=== PATIENT | female | born 1950 | race Caucasian/White ===

== ENCOUNTER 2019-11-08 23:16 | Inpatient (IN) ==
[2019-11-08] MEDS ORDERED: SODIUM CHLORIDE 0.9% 1000ML 1,000 ML IV SCH (23:30)
[2019-11-08 23:38] LABS: Basophils # (auto) 0.04 K/uL (0-0.2); Basophils % (auto) 0.6 %; Eosinophils % (auto) 1.4 %; Immature Granulocytes # (auto) 0.02 K/uL (0.00-0.02); Immature Granulocytes % (auto) 0.3 %; Lymphocytes # (auto) 3.11 K/uL (1.2-3.4); Lymphocytes % (auto) 43.7 %; Mean Corpuscular Hemoglobin 34.7 pg (25-34); Mean Platelet Volume 9.8 fL (7.4-10.4); Monocytes # (auto) 0.69 K/uL (0.11-0.59); Monocytes % (auto) 9.7 %; Neutrophils # (auto) 3.15 K/uL (1.4-6.5); Neutrophils % (auto) 44.3 %; Platelet Count 187 K/uL (130-400); RDW Coefficient of Variation 12.6 % (11.5-14.5); Red Blood Count 4.04 M/uL (4.2-5.4); White Blood Count 7.11 K/uL (4.8-10.8)
[2019-11-08 23:50] LABS: Partial Thromboplastin Time 27.6 Seconds (21.0-31.0); Prothrombin Time 10.1 Seconds (9.0-12.0)
--- NOTE | 2019-11-08 23:51 | Emergency Department Note ---
Impression & Plan Alcoholic intoxication, Syncope, Acute hyponatremia, Hypokalemia ED Provider Note NAME: SIRIA RIZZO AGE: 69 SEX: F : 1950 ARRIVES VIA: Ambulance INFORMANT: Patient, the patient's daughter as well as the prehospital personnel. ED PROVIDER(S): [Eliot Oconnor DO] CHIEF COMPLAINT: Syncope HPI: The patient is a 57-year-old female who presented to the emergency department by ambulance for possible alcohol intoxication. Apparently the patient was at a local tavern outside of [place] when she was found passed out. The patient admits to multiple alcoholic beverages this evening. She denies having any chest pain. She denies having any neck pain or difficulty breathing. She has no lower extremity pain. She denies having any recent traveling or cough. She has no exposure to COVID-19 as far she knows. She admi ts to drinking multiple alcoholic beverages throughout the entire day. She apparently drove to a local tavern and when she went outside she had passed out. This was not a witnessed syncopal episode. The patient states she does not have any history of similar episodes in the past. ROS: See above HPI for pertinent positives & negatives. A total of 10 systems reviewed and were otherwise negative. PAST MEDICAL HISTORY: See Below PAST SURGICAL HISTORY: See Below FAMILY HISTORY: See Below SOCIAL HISTORY: See Below HOME MEDICATIONS: See Below ALLERGIES: See Below VITALS: See Below PHYSICAL EXAMINATION: GENERAL: Patient is awake alert in no acute distress patient is resting comfortably and showing no signs of anxiety EYES: The conjunctivae are clear. The pupils are round and reactive. EARS, NOSE, MOUTH AND THROAT: The nose is without any evidence of any deformity. Mucous membranes are moist. There is swelling in the occipital scalp but no laceration. NECK: The neck is nontender and supple. Rigid cervical collar was placed prior to arrival. RESPIRATORY: Normal respiratory effort is noted there is no evidence of wheezing rhonchi or rales CARDIOVASCULAR: Regular rate and rhythm noted there no murmurs rubs or gallops normal S1 normal S2. GASTROINTESTINAL: The abdomen is soft. Abdomen is nontender. BACK: No midline tenderness or or step-off noted range of motion in flexion extension as well as rotation no signs of muscle spasm noted MUSCULOSKELETAL/EXTREMITIES: There is no evidence of gross deformity full range of motion is noted in the hips and shoulders. SKIN: There is no obvious evidence of any rash. There is left lower extremity swelling to palpation. There is no erythema or lymphangitic streaking. NEUROLOGIC: Patient is oriented to person place and situation. Strength was symmetric. MEDICAL DECISION MAKING: The patient is a 69-year-old female who presented to the emergency department for an evaluation after being found outside of a bar. The patient has a history of chronic alcohol abuse according to her daughter. Additional history is obtained from the patient's daughter. The patient was treated with IV fluids IV thiamine and IV potassium replacement. I discussed the patient's laboratory and radiographic studies with her and her daughter in [place]. I also discussed her case with the on-call [facility] hospitalist. They have agreed to evaluate the patient in the emergency department for further management and disposition. The patient was placed in a rigid cervical collar upon arrival but she was very uncomfortable and removed the collar. Triage Nursing notes reviewed. Prior medical records reviewed Vital Signs: reviewed and remarkable for hypotension. Differential diagnosis: Vasovagal event, dehydration, infection, hypoglycemia, electrolyte abnormalities, cardiac sources, intracerebral event, pulmonary embolism, seizure, toxicologic, neurologic, as well as other pathologies. ER treatment provided: See below Diagnostics interpreted by me: ECG: EKG was obtained in the emergency department. My interpretation is normal sinus rhythm at 75 bpm. There is no ectopy. Right bundle branch block pattern was noted. There is no previous tracing available for comparison. Cardiac Monitoring: An order was placed for continuous cardiac monitoring. The monitor shows a rate of 85 with sinus rhythm. Laboratory studies: As stated above and show below. Imaging studies: See below Consultation(s): [id number]: Daughter Cori [phone] [id number]: I discussed this case with Dr. Fajardo. He is agreed to evaluate the patient in the emergency department for further management and disposition. Past Med/Surg History Medical History (Updated 11/09/19 @ 01:49 by Eliot Oconnor DO) Depression Lymphedema Surgical History History of cholecystectomy Social History (Updated 11/09/19 @ 01:47 by Eliot Oconnor DO) Feels Safe at Home: Yes Smoking Status: Never smoker Hx Alcohol Use: Yes Alcohol type: beer and hard liquor Allergies Allergies Allergy/AdvReac Type Severity Reaction Status Date / Time No Known Allergies Allergy Unverified 11/08/19 23:48 Home Meds Home Medications Medication Instructions Recorded Confirmed No Known Home Medications 11/08/19 11/08/19 Results & Data (ED) Vital Signs Vital Signs - 24 hr 11/08/19 23:30 11/08/19 23:40 11/09/19 01:13 Temperature 36.3 C L Temperature Source Oral Pulse Rate 71 77 79 Pulse Rate from SpO2 Sensor 72 77 Respiratory Rate 17 24 22 Respiratory Effort / Characteristics Non-Labored Spontaneous Respiratory Depth Normal Blood Pressure 113/74 133/85 113/71 Blood Pressure Mean 80 101 81 Pulse Oximetry 93 92 95 Oxygen Delivery Method Room Air Room Air Room Air Sepsis Action Taken by Nursing No Action Required 11/09/19 01:30 11/09/19 01:52 Temperature Temperature Source Pulse Rate 71 Pulse Rate from SpO2 Sensor 72 68 Respiratory Rate 19 17 Respiratory Effort / Characteristics Respiratory Depth Blood Pressure 90/66 L 89/52 L Blood Pressure Mean 74 62 Pulse Oximetry 95 94 Oxygen Delivery Method Room Air Room Air Sepsis Action Taken by [facility] Medications Current Medication List: was personally reviewed by me Laboratory Data Attestation: I reviewed the patient's lab results. Result diagrams: 11/08/19 23:20 11/08/19 23:20 Lab Results 11/08/19 11/08/19 11/08/19 Range/Units 23:20 23:20 23:20 WBC 7.11 (4.8-10.8) K/uL RBC 4.04 L (4.2-5.4) M/uL Hgb 14.0 (12.0-16.0) g/dL Hct 40.0 (37-47) % MCV 99.0 (80-100) fL MCH 34.7 H (25-34) pg MCHC 35.0 (32-36) g/dL RDW Std Deviation 46.0 (36.4-46.3) fL RDW Coeff of [place] 12.6 (11.5-14.5) % Plt Count 187 (130-400) K/uL MPV 9.8 (7.4-10.4) fL Immature Gran % (Auto) 0.3 % Neut % (Auto) 44.3 % Lymph % (Auto) 43.7 % [place] % (Auto) 9.7 % Eos % (Auto) 1.4 % Baso % (Auto) 0.6 % Neut # (Auto) 3.15 (1.4-6.5) K/uL Lymph # (Auto) 3.11 (1.2-3.4) K/uL [place] # (Auto) 0.69 H (0.11-0.59) K/uL Eos # (Auto) 0.10 (0-0.5) K/uL Baso # (Auto) 0.04 (0-0.2) K/uL Immature Gran # (Auto) 0.02 (0.00-0.02) K/uL PT 10.1 (9.0-12.0) Seconds INR 1.0 (0.9-1.1) APTT 27.6 (21.0-31.0) Seconds PTT Ratio 1.0 Sodium 129 L (136-145) mmol/L Potassium 2.6 L (3.5-5.1) mmol/L Chloride 91 L (98-107) mmol/L Carbon Dioxide 25 (21-32) mmol/L Anion Gap 12.0 H (3-11) BUN 9 (7-18) mg/dl Creatinine 0.71 (0.6-1.2) mg/dl Est Cr Clr Drug Dosing Not Reportable Est GFR ( Amer) 102.2 Est GFR (Non-Af Amer) 88.1 BUN/Creatinine Ratio 13.2 (10-20) Glucose 95 (70-99) mg/dl Calcium 8.9 (8.5-10.1) mg/dl Magnesium 1.9 (1.8-2.4) mg/dl Total Bilirubin 0.6 (0.2-1) mg/dl AST 50 H (15-37) U/L ALT 48 (12-78) U/L Alkaline Phosphatase 74 (45-117) U/L Troponin I < 0.015 (0-0.045) ng/ml Total Protein 7.9 (6.4-8.2) gm/dl Albumin 4.3 (3.4-5.0) gm/dl Globulin 3.6 (2.5-4.0) gm/dl Albumin/Globulin Ratio 1.2 (0.9-2) Lipase 244 (73-393) U/L TSH 3.070 (0.300-4.500) uIu/ml Urine Color Urine Appearance (Clear) Urine pH (4.5-7.5) Ur Specific [place] (1.000-1.030) Urine Protein (Negative) Urine Glucose (UA) (Negative) Urine Ketones (Negative) Urine Blood (Negative) Urine Nitrite (Negative) Urine Bilirubin (Negative) Urine Urobilinogen (Negative) Ur Leukocyte Esterase (Negative) Urine RBC (0-4) /hpf Urine WBC (0-5) /hpf Ur Epithelial Cells (0-5) /lpf Urine Bacteria (Negative) Ethyl Alcohol mg/dL (0-3) mg/dl 11/08/19 11/09/19 Range/Units 23:33 01:25 WBC (4.8-10.8) K/uL RBC (4.2-5.4) M/uL Hgb (12.0-16.0) g/dL Hct (37-47) % MCV (80-100) fL MCH (25-34) pg MCHC (32-36) g/dL RDW Std Deviation (36.4-46.3) fL RDW Coeff of [place] (11.5-14.5) % Plt Count (130-400) K/uL MPV (7.4-10.4) fL Immature Gran % (Auto) % Neut % (Auto) % Lymph % (Auto) % [place] % (Auto) % Eos % (Auto) % Baso % (Auto) % Neut # (Auto) (1.4-6.5) K/uL Lymph # (Auto) (1.2-3.4) K/uL [place] # (Auto) (0.11-0.59) K/uL Eos # (Auto) (0-0.5) K/uL Baso # (Auto) (0-0.2) K/uL Immature Gran # (Auto) (0.00-0.02) K/uL PT (9.0-12.0) Seconds INR (0.9-1.1) APTT (21.0-31.0) Seconds PTT Ratio Sodium (136-145) mmol/L Potassium (3.5-5.1) mmol/L Chloride (98-107) mmol/L Carbon Dioxide (21-32) mmol/L Anion Gap (3-11) BUN (7-18) mg/dl Creatinine (0.6-1.2) mg/dl Est Cr Clr Drug Dosing Est GFR ( Amer) Est GFR (Non-Af Amer) BUN/Creatinine Ratio (10-20) Glucose (70-99) mg/dl Calcium (8.5-10.1) mg/dl Magnesium (1.8-2.4) mg/dl Total Bilirubin (0.2-1) mg/dl AST (15-37) U/L ALT (12-78) U/L Alkaline Phosphatase (45-117) U/L Troponin I (0-0.045) ng/ml Total Protein (6.4-8.2) gm/dl Albumin (3.4-5.0) gm/dl Globulin (2.5-4.0) gm/dl Albumin/Globulin Ratio (0.9-2) Lipase (73-393) U/L TSH (0.300-4.500) uIu/ml Urine Color Yellow Urine Appearance Clear (Clear) Urine pH 6.0 (4.5-7.5) Ur Specific [place] 1.008 (1.000-1.030) Urine Protein Negative (Negative) Urine Glucose (UA) Negative (Negative) Urine Ketones Negative (Negative) Urine Blood Trace H (Negative) Urine Nitrite Negative (Negative) Urine Bilirubin Negative (Negative) Urine Urobilinogen Negative (Negative) Ur Leukocyte Esterase Negative (Negative) Urine RBC 0-4 (0-4) /hpf Urine WBC 0-5 (0-5) /hpf Ur Epithelial Cells 0-5 (0-5) /lpf Urine Bacteria Negative (Negative) Ethyl Alcohol mg/dL 294.0 H (0-3) mg/dl Administered Medications Potassium Chloride (K Hir[place] / Wtr) 10 meq in 100 mls @ 100 mls/hr IV Q1H ARABELLA Stop: 11/09/19 03:59 Last Admin: 11/09/19 02:05 Dose: 100 mls/hr Documented by: [id number] Sodium Chloride (Nss 1000ml) 1,000 mls @ 999 mls/hr IV .Q1H1M ONE Stop: 11/09/19 03:00 Last Admin: 11/09/19 02:05 Dose: 999 mls/hr Documented by: [id number] Discontinued Medications Sodium Chloride (Nss 1000ml) 1,000 mls @ 999 mls/hr IV .Q1H1M ARABELLA Stop: 11/09/19 00:30 Last Infusion: 11/09/19 01:26 Dose: 0 mls/hr Documented by: [id number] Admin: 11/09/19 00:15 Dose: 999 mls/hr Documented by: [id number] Imaging Data Attestation: I personally reviewed and interpreted this imaging study as follows: My Impression: Portable chest x-ray was obtained in the emergency department. My interpretation is no definite infiltrate no free air. Heart size is top normal. No acute disease. 1 view x-ray of the pelvis was obtained in the emergency department. My interpretation is no bony injury., No fracture, no acute disease was noted. Radiologist's Impression: Preliminary Findings Only See Final Report For Complete Findings CT C SPINE: CT HEAD: No acute intracranial finding. Status post bilateral cataract surgery. Mild reversal of the normal cervical lordosis apexes at C6. Multilevel disc and facet degenerative changes. Anatomic alignment of occipital condyle C1, C7-T1. Right greater than left C3-4, C4-5 facet arthropathy. C6-7 disc and uncovertebral joint space narrowing. Lung apices are normal. Radiologist: Yassine Anderson MD Study ready at 01:10 and initial results transmitted at 01:27 Blood Pressure Blood Pressure Findings: Normal blood pressure Discharge Plan Visit Data Chief Complaint: Alcohol Intoxication Stated Complaint: ETOH/Fall ED Provider: Eliot Oconnor Discharge Problem: Alcoholic intoxication, Syncope, Acute hyponatremia, Hypokalemia Patient Disposition: Being Evaluated by Hospitalist Condition: Good Forms Stand Alone Forms: My [employer] Prescriptions Prescriptions: No Action No Known Home Medications RF: 0 Referrals Referrals: PCP,NO [Primary Care Provider] -
[2019-11-08 23:54] LABS: Alanine Aminotransferase 48 U/L (12-78); Albumin Level 4.3 gm/dl (3.4-5.0); Aspartate Aminotransferase 50 U/L (15-37); BUN Creatinine Ratio 13.2 (10-20); Blood Urea Nitrogen 9 mg/dl (7-18); Calcium 8.9 mg/dl (8.5-10.1); Carbon Dioxide 25 mmol/L (21-32); Chloride 91 mmol/L (98-107); Est GFR (African American) 102.2; Est GFR (Non-African American) 88.1; Glucose 95 mg/dl (70-99); Lipase 244 U/L (73-393); Magnesium 1.9 mg/dl (1.8-2.4); Potassium 2.6 mmol/L (3.5-5.1); Sodium 129 mmol/L (136-145)
[2019-11-09 00:05] LABS: Albumin Globulin Ratio 1.2 (0.9-2); Alkaline Phosphatase 74 U/L (45-117); Bilirubin,Total 0.6 mg/dl (0.2-1); Globulin 3.6 gm/dl (2.5-4.0); Total Protein 7.9 gm/dl (6.4-8.2); Troponin I < 0.015 ng/ml (0-0.045)
[2019-11-09] MEDS ORDERED: POTASSIUM ACETATE 10 MEQ in 0.9 % SODIUM CHLORIDE 100 ML IV SCH (01:30)
[2019-11-09 01:34] LABS: Appearance Urine Clear (Clear); Bilirubin Urine Negative (Negative); Blood Urine Trace (Negative); Color Urine Yellow; Glucose Urine UA Negative (Negative); Ketones Urine Negative (Negative); Leukocyte Esterase Urine Negative (Negative); Nitrite Urine Negative (Negative); Protein Urine Negative (Negative); Specific Gravity Urine 1.008 (1.000-1.030); Urobilinogen Urine Negative (Negative)
[2019-11-09 01:58] LABS: Epithelial Cell Urine 0-5 /lpf (0-5)
[2019-11-09 01:59] LABS: Bacteria Urine Negative (Negative); RBC Urine 0-4 /hpf (0-4); WBC Urine 0-5 /hpf (0-5)
[2019-11-09] MEDS ORDERED: THIAMINE HCL 200 MG in SODIUM CHLORIDE 0.9% 50 ML IV STA (02:00)
[2019-11-09] MEDS ORDERED: SODIUM CHLORIDE 0.9% 1000ML 1,000 ML IV ONE (02:00)
[2019-11-09] MEDS: POTASSIUM CHLORIDE / WTR 10 MEQ/100 ML PLCT IV SCH ×2 (02:05→02:59)
[2019-11-09 02:36] LABS: Amphetamines+Metham, Urine Neg (Neg); Barbiturates, Urine Neg (Neg); Benzodiazepine, Urine Neg (Neg); Cocaine, Urine Neg (Neg); MDMA (Ecstacy), Urine Neg (Neg); Methadone, Urine Neg (Neg); Opiate, Urine Neg (Neg); Phencyclidine, Urine Neg (Neg)
--- NOTE | 2019-11-09 02:57 | History & Physical Report ---
Date of Service November 09, 2019 Assessment & Plan (1) Fall: Possible syncopal event Possible orthostasis given low BP Rule out cardiac pathology Hyponatremia, hypokalemia possibly secondary to poor p.o. intake Alcohol abuse contributory to hyponatremia mood disorder, suboptimal, on SSRI at home, patient denies suicidality hypothyroidism, euthyroid as of today's TSH Medical telemetry IVF TTE RE syncope Careful correction of sodium, hyponatremia work-up Nephrology consult if without improvement Hold SSRI for now given hyponatremia Replace electrolytes DT precautions PT OT eval DVT prophylaxis. SCDs RE traumatic head wound DNR Text document was generated using [employer] voice recognition software. It may contain grammatical or spelling errors. Kindly contact undersigned for clarification of any documentation item in question. History of Present Illness Chief Complaint: Alcohol intoxication as per records, possibly passed out Primary Care Provider: Jenna Adams PA-C History obtained from patient and records. Medical history significant for mood disorder, hypothyroidism, alcohol abuse. Patient was drinking by herself at a local bar in [facility] last night. She left the bar to go home. Thinks she may have passed out outside the bar. May have drank too much as per patient. Patient denies chest pain, S OB, tongue biting, incontinence. No witnessed seizures. Bleeding wound noted on occipital area as per EMS. Patient denies headache symptoms. Although depression not the best. Patient denies suicidality. No history of confinements for alcohol withdrawal. 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 Allergies Allergy/AdvReac Type Severity Reaction Status Date / Time No Known Allergies Allergy Unverified 11/08/19 23:48 Home Medications Home Medications Medication Instructions Recorded Confirmed Type No Known Home Medications 11/08/19 11/08/19 History Past Med/Surg History Medical History (Updated 11/09/19 @ 10:55 by Gordo Vargas MD) Depression Lymphedema Surgical History History of cholecystectomy Social History (Updated 11/09/19 @ 01:47 by Eliot Oconnor DO) Preferred Language: [employer] Coordinator Required: No Beliefs That Will Affect Care: None Current Living Situation: Family Other Information That Helps Us Care for You: No Feels Safe at Home: Yes Safety Concerns: Feels Safe At This Time Smoking Status: Never smoker Hx Alcohol Use: Yes Alcohol type: beer and hard liquor Hx Substance Use: No Review of Systems Review of Systems: As per HPI, all 10 systems reviewed, all other ROS negative Physical Exam Physical Exam: GENERAL: Comfortable, slight restless, alcoholic fetor, no respiratory distress SKIN: Normal color, warm HEENT: Dried blood occiput, [place] palpebral conjunctivae, no ptosis, dry buccal mucosa NECK : Supple, short neck, no tenderness CHEST : Decreased breath sounds, no tenderness HEART : RRR, no obvious murmurs ABDOMEN: Some distention, nontender EXTREMITIES : No LE swelling/tenderness, no other conspicuous deformities noted NEUROLOGIC : Coherent, no facial asymmetry, no other gross focality Results & Data Results & Data ([facility]) Vital Signs (Past 12 Hours) Vital Signs Temp Pulse Resp BP Pulse Ox 11/09/19 02:30 69 20 102/59 L 95 11/09/19 01:52 17 89/52 L 94 11/09/19 01:30 71 19 90/66 L 95 11/09/19 01:13 79 22 113/71 95 11/08/19 23:40 36.3 C L 77 24 133/85 92 11/08/19 23:30 71 17 113/74 93 Laboratory Results Laboratory Results WBC 7.11 K/uL (4.8-10.8) 11/08/19 23:20 RBC 4.04 M/uL (4.2-5.4) L 11/08/19 23:20 Hgb 14.0 g/dL (12.0-16.0) 11/08/19 23:20 Hct 40.0 % (37-47) 11/08/19 23:20 MCV 99.0 fL (80-100) 11/08/19 23:20 MCH 34.7 pg (25-34) H 11/08/19 23:20 MCHC 35.0 g/dL (32-36) 11/08/19 23:20 RDW Std Deviation 46.0 fL (36.4-46.3) 11/08/19 23:20 RDW Coeff of [place] 12.6 % (11.5-14.5) 11/08/19 23:20 Plt Count 187 K/uL (130-400) 11/08/19 23:20 MPV 9.8 fL (7.4-10.4) 11/08/19 23:20 Immature Gran % (Auto) 0.3 % 11/08/19 23:20 Neut % (Auto) 44.3 % 11/08/19 23:20 Lymph % (Auto) 43.7 % 11/08/19 23:20 [place] % (Auto) 9.7 % 11/08/19 23:20 Eos % (Auto) 1.4 % 11/08/19 23:20 Baso % (Auto) 0.6 % 11/08/19 23:20 Neut # (Auto) 3.15 K/uL (1.4-6.5) 11/08/19 23:20 Lymph # (Auto) 3.11 K/uL (1.2-3.4) 11/08/19 23:20 [place] # (Auto) 0.69 K/uL (0.11-0.59) H 11/08/19 23:20 Eos # (Auto) 0.10 K/uL (0-0.5) 11/08/19 23:20 Baso # (Auto) 0.04 K/uL (0-0.2) 11/08/19 23:20 Immature Gran # (Auto) 0.02 K/uL (0.00-0.02) 11/08/19 23:20 PT 10.1 Seconds (9.0-12.0) 11/08/19 23:20 INR 1.0 (0.9-1.1) 11/08/19 23:20 APTT 27.6 Seconds (21.0-31.0) 11/08/19 23:20 PTT Ratio 1.0 11/08/19 23:20 Sodium 129 mmol/L (136-145) L 11/08/19 23:20 Potassium 2.6 mmol/L (3.5-5.1) L 11/08/19 23:20 Chloride 91 mmol/L (98-107) L 11/08/19 23:20 Carbon Dioxide 25 mmol/L (21-32) 11/08/19 23:20 Anion Gap 12.0 (3-11) H 11/08/19 23:20 BUN 9 mg/dl (7-18) 11/08/19 23:20 Creatinine 0.71 mg/dl (0.6-1.2) 11/08/19 23:20 Est Cr Clr Drug Dosing Not Reportable 11/08/19 23:20 Est GFR ( Amer) 102.2 11/08/19 23:20 Est GFR (Non-Af Amer) 88.1 11/08/19 23:20 BUN/Creatinine Ratio 13.2 (10-20) 11/08/19 23:20 Glucose 95 mg/dl (70-99) 11/08/19 23:20 Osmolality 349 mOsm/kg (280-300) H 11/08/19 23:20 Calcium 8.9 mg/dl (8.5-10.1) 11/08/19 23: Magnesium 1.9 mg/dl (1.8-2.4) 11/08/19 23:20 Total Bilirubin 0.6 mg/dl (0.2-1) 11/08/19 23:20 AST 50 U/L (15-37) H 11/08/19 23:20 ALT 48 U/L (12-78) 11/08/19 23:20 Alkaline Phosphatase 74 U/L (45-117) 11/08/19 23:20 Troponin I < 0.015 ng/ml (0-0.045) 11/08/19 23:20 Total Protein 7.9 gm/dl (6.4-8.2) 11/08/19 23:20 Albumin 4.3 gm/dl (3.4-5.0) 11/08/19 23: Globulin 3.6 gm/dl (2.5-4.0) 11/08/19 23:20 Albumin/Globulin Ratio 1.2 (0.9-2) 11/08/19 23:20 Lipase 244 U/L (73-393) 11/08/19 23:20 TSH 3.070 uIu/ml (0.300-4.500) 11/08/19 23:20 Urine Color Yellow 11/09/19 01:25 Urine Appearance Clear (Clear) 11/09/19 01:25 Urine pH 6.0 (4.5-7.5) 11/09/19 01:25 Ur Specific [place] 1.008 (1.000-1.030) 11/09/19 01:25 Urine Protein Negative (Negative) 11/09/19 01:25 Urine Glucose (UA) Negative (Negative) 11/09/19 01:25 Urine Ketones Negative (Negative) 11/09/19 01:25 Urine Blood Trace (Negative) H 11/09/19 01:25 Urine Nitrite Negative (Negative) 11/09/19 01:25 Urine Bilirubin Negative (Negative) 11/09/19 01:25 Urine Urobilinogen Negative (Negative) 11/09/19 01:25 Ur Leukocyte Esterase Negative (Negative) 11/09/19 01:25 Urine RBC 0-4 /hpf (0-4) 11/09/19 01:25 Urine WBC 0-5 /hpf (0-5) 11/09/19 01:25 Ur Epithelial Cells 0-5 /lpf (0-5) 11/09/19 01:25 Urine Bacteria Negative (Negative) 11/09/19 01:25 Urine Osmolality 139 mOsm/kg (500-800) L 11/09/19 01:25 Ur Random Sodium 15 mmol/L 11/09/19 01:25 Urine Opiates Screen Neg (Neg) 11/09/19 01:25 Ur Methadone, Qual Neg (Neg) 11/09/19 01:25 Urine Barbiturates Neg (Neg) 11/09/19 01:25 Ur Phencyclidine (PCP) Neg (Neg) 11/09/19 01:25 U Amphetamin/Meth Scrn Neg (Neg) 11/09/19 01:25 MDMA (Ecstasy) Screen Neg (Neg) 11/09/19 01:25 U Benzodiazepines Scrn Neg (Neg) 11/09/19 01:25 Ur Cocaine Metabolite Neg (Neg) 11/09/19 01:25 U Marijuana (THC) Screen Neg (Neg) 11/09/19 01:25 Ethyl Alcohol mg/dL 294.0 mg/dl (0-3) H 11/08/19 23:[address] head initial read: No acute intracranial findings. CT cervical spine initial read: Mild reversal of normal cervical lordosis at C6. Multilevel disc and facet degenerative changes. Anatomic alignment occipital condyle C1 and C7-T1. Right greater than the left C3-4, C4-5 facet arthropathy. C6-7 disc and intervertebral joint space narrowing. Chest x-ray as per my interpretation no congestion EKG as per my interpretation : Rate 75, NSR, LAD, LAFB, RBBB, no ischemia
[2019-11-09] MEDS ORDERED: POTASSIUM CHLORIDE 20 MEQ TABCR PO STA (03:03)
[2019-11-09] MEDS ORDERED: ATIVAN IV ALCOHOL WITHDRAWL IV PRN (04:46)
[2019-11-09] MEDS ORDERED: LORazepam 2 MG/4 ML VIAL IV PRN (04:46)
[2019-11-09] MEDS ORDERED: ACETAMINOPHEN 325 MG TAB PO PRN (04:46)
[2019-11-09] MEDS ORDERED: LORazepam 3 MG/6 ML VIAL IV PRN (04:46)
[2019-11-09] MEDS ORDERED: LORazepam 1 MG/2 ML VIAL IV PRN (04:46)
[2019-11-09] MEDS ORDERED: GABAPENTIN 1200MG ALCOHOL WITHDRAWAL LOAD PO STA (04:46)
[2019-11-09] MEDS ORDERED: PROMETHAZINE HCL 12.5 MG in SODIUM CHLORIDE 0.9% 50 ML IV PRN (04:46)
[2019-11-09] MEDS ORDERED: OXYCODONE HCL IR 5 MG TAB (IMMEDIATE RELEASE) PO PRN (04:46)
[2019-11-09] MEDS ORDERED: POTASSIUM CHLORIDE 20 MEQ TABCR PO ONE (05:00)
[2019-11-09] MEDS ORDERED: GABAPENTIN 600 MG TAB PO ONE (05:00)
[2019-11-09] MEDS ORDERED: MAGNESIUM SULFATE / D5W 1 GM/100 ML BAG IV ONE (05:00)
[2019-11-09 05:42] LABS: Eosinophils # (auto) 0.07 K/uL (0-0.5); Eosinophils % (auto) 1.6 %; Hematocrit (blood only) 36.3 % (37-47); Hemoglobin 12.7 g/dL (12.0-16.0); Lymphocytes # (auto) 1.91 K/uL (1.2-3.4); Lymphocytes % (auto) 44.5 %; Mean Corpuscular Volume 97.1 fL (80-100); Mean Platelet Volume 9.5 fL (7.4-10.4); Monocytes # (auto) 0.29 K/uL (0.11-0.59); Monocytes % (auto) 6.8 %; Neutrophils # (auto) 2.02 K/uL (1.4-6.5); Neutrophils % (auto) 47.1 %; Platelet Count 149 K/uL (130-400); RDW Coefficient of Variation 12.7 % (11.5-14.5); Red Blood Count 3.74 M/uL (4.2-5.4); White Blood Count 4.29 K/uL (4.8-10.8)
[2019-11-09 06:10] LABS: Albumin Level 3.4 gm/dl (3.4-5.0); Bilirubin Direct 0.1 mg/dl (0-0.2); Bilirubin,Total 0.5 mg/dl (0.2-1); Total Protein 6.9 gm/dl (6.4-8.2)
[2019-11-09] MEDS ORDERED: NORMOSOL-R 1,000 ML IV ONE (06:15)
[2019-11-09 06:29] LABS: BUN Creatinine Ratio 11.1 (10-20); Calcium 8.3 mg/dl (8.5-10.1); Creatinine Clr Calc Pharmacy 93.3 ml/min; Est GFR (African American) 111.2; Est GFR (Non-African American) 95.9
[2019-11-09 06:57] LABS: Potassium 3.2 mmol/L (3.5-5.1)
[2019-11-09] MEDS ORDERED: CALCIUM GLUCONATE 10% 1,000 MG in SODIUM CHLORIDE 0.9% 50 ML IV STA (07:00)
[2019-11-09] MEDS: FOLIC ACID 1 MG TAB PO SCH (08:03)
[2019-11-09] MEDS: THIAMINE HCL 100 MG TAB PO SCH (08:03)
[2019-11-09] MEDS: GABAPENTIN 600 MG TAB PO SCH ×3 (08:03→23:15)
[2019-11-09] MEDS: MULTIVITAMIN TAB PO SCH (08:03)
--- NOTE | 2019-11-09 08:39 | CT Scan Report ---
CT head/brain wo con CLINICAL HISTORY: 69 years-old Female with syncope. Acute syncope TECHNIQUE: Multiple axial CT images of the head were obtained without contrast. A dose lowering tech nique was utilized adhering to the principles of ALARA. COMPARISON: None. FINDINGS: No acute intracranial hemorrhage, midline shift, intracranial mass, hydrocephalus, territorial ischem ia or abnormal extra-axial collection. There are a few minimal white matter hypodensities which are s uggestive of chronic microvascular ischemic disease. Mild age-related involutional changes. Prior aung ateral lens replacement. The calvarium is intact. The paranasal sinuses, mastoid air cells, and middle ear cavities are clear . IMPRESSION: No acute intracranial abnormality or calvarial fracture. ACT 112: Negative or not required by law. The above report was generated using voice recognition software. It may contain grammatical, syntax o r spelling errors. Electronically signed by: Camden Dominguez M.D. 11/09/2019 8:38 AM
--- NOTE | 2019-11-09 08:43 | CT Scan Report ---
CT cervical spine wo con CT DOSE: 999.01 mGy.cm CLINICAL HISTORY: 69 years-old Female with fll. Acute head and neck injury status post fall COMPARISON: Head CT of same day TECHNIQUE: Multiple axial CT images of the cervical spine were obtained without contrast. A dose low ering technique was utilized adhering to the principles of ALARA. FINDINGS: Mildly demineralized appearance the bones. Reversal the normal cervical lordosis. Grade 1 anterolisth esis C4 on C5 likely secondary to long-standing facet arthrosis. Mild multilevel disc space narrowing . Moderate to severe disc space narrowing at C6-C7 with moderate disc osteophyte complex. Severe mult ilevel facet arthrosis. Multilevel annular disc bulging. Evaluation of the central canal and neurofor pedro luis is better assessed by MRI. There is multilevel foraminal narrowing noted which is at least mild . Right-sided foraminal narrowing at C3-C4 appears to be severe. No acute fracture or subluxation wade ntified. Mastoid air cells are clear. No pneumothorax or prevertebral soft tissue swelling. IMPRESSION: No acute fracture or subluxation. ACT 112: Negative or not required by law. The above report was generated using voice recognition software. It may contain grammatical, syntax o r spelling errors. Electronically signed by: Camden Dominguez M.D. 11/09/2019 8:42 AM
--- NOTE | 2019-11-09 08:55 | XRay Report ---
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 No acute fracture, dislocation or sharron scular necrosis. Soft tissues are unremarkable. IMPRESSION: No acute fracture or dislocation. ACT 112: Negative or not required by law. The above report was generated using voice recognition software. It may contain grammatical, syntax o r spelling errors. Electronically signed by: Camden Dominguez M.D. 11/09/2019 8:53 AM
--- NOTE | 2019-11-09 08:56 | XRay Report ---
XR chest 1V portable HISTORY: 69 years-old Female fall acute chest trauma status post fall COMPARISON: None TECHNIQUE: Portable AP view of the chest FINDINGS: The cardiac silhouette is mildly enlarged. No pneumothorax, pleural effusion, airspace consolidation or overt pulmonary edema. Bones of the chest appear grossly intact. IMPRESSION: No acute process. ACT 112: Negative or not required by law. The above report was generated using voice recognition software. It may contain grammatical, syntax o r spelling errors. Electronically signed by: Camden Dominguez M.D. 11/09/2019 8:55 AM
[2019-11-09] MEDS ORDERED: LACTATED RINGER'S 1,000 ML IV ONE (09:15)
--- NOTE | 2019-11-09 14:33 | Electrocardiogram Report ---
Test Reason : Blood Pressure : / mmHG Vent. Rate : 075 BPM Atrial Rate : 075 BPM P-R Int : 202 ms QRS Dur : 148 ms QT Int : 504 ms P-R-T Axes : 063 -44 046 degrees QTc Int : 562 ms Normal sinus rhythm Left axis deviation Right bundle branch block Possible Lateral infarct , age undetermined Abnormal ECG No previous ECGs available Confirmed by Eliot Horton ([id number]) on 11/09/2019 2:33:14 PM Referred By: REFERRED SELF Confirmed By:Eliot Horton
[2019-11-09 16:52] LABS: Potassium 4.1 mmol/L (3.5-5.1)
--- NOTE | 2019-11-09 17:06 | Hospitalist Progress Note ---
Date of Service November 09, 2019 Assessment & Plan (1) Fall: Possible related to alcohol intoxication vs syncopal episode Need to r/o any seizure activity Alcohol level above [address] head showed no acute intracranial abnormality Cervical CT showed no acute fracture or subluxation. Tele monitor showed no arrhythmia Echo showed left ventricle systolic function is normal. Left ventricular wall motion is normal. Grade 2 diastolic dysfunction. Ejection fraction 50 to 60% Denies any pain PT/OT eval Fall precaution Alcohol abuse Alcohol level 294 on admission Denies any history of alcohol withdrawal or DT Continue alcohol withdrawal protocol with gabapentin and Ativan No sign of withdrawal symptoms noted Counseling on alcohol cessation Continue thiamine, folic acid and multivitamin Continue monitor closely for DT and alcohol withdrawal Hyponatremia Related to alcohol intake On admission Na 129, Serum osmolarity 349, urine osmolarity 139 and anion gap 12 Received IV NSS Most recent Na level 142 (Corrected too fast in less than 24 hrs) Normal anion gap now Current on lactate ringer, will change IV to D5W @ 100 Na goal 136-138 Will repeat BMP @ 11PM Elevated Lactic acid Mostly related to Alcohol intoxication Lactic acid peaked to 3.2 No signs of infection CXR showed negative Afebrile, No leukocytosis, Procalcitonin normal Received IVF, lactic acid normalized Hypokalemia Potassium on admission 2.6 Received K supplement K 4.1 today Continue monitor BMP Mood disorder SSRI on hold due to low Na Will resume in am Hypothyroidism TSH wnl Continue levothyroxine DVT px on SCDs Will start on Lovenox subq CODE STATUS DNR/DNI Disposition Will discharge once medically stable Admission and Anticipated Discharge Date Admission Date: November 09, 2019 Subjective Pt was seen and examined Lying in bed comfortable eating lunch She said that she did not remember what happened to her last night She said that she was at a bar drinking alcohol last night She said that she probably drank a little too much last night She said that the next thing she saw that she was in the ambulance She said that she drinks beers every day She said that she feels fine Denies any chest pain, palpitation, dizziness, palpitation, hallucination and SOB Physical Exam Physical Exam: General- No acute distress Head- atraumatic Eyes- PERRL, EOMI, ENT- oropharynx clear Neck- supple, no JVD Lungs- clear to auscultation Heart- regular rhythm; no murmur Abdomen- normal bowel sounds, soft, nontender Extremities- no calf tenderness Neuro- alert, oriented x 3; PERRL, EOMI; no facial palsy; no dysarthria Skin- warm & dry Results & Data Results & Data ([facility]) Vital Signs (Past 12 Hours) Vital Signs Temp Pulse Pulse Resp BP Pulse Ox 11/09/19 14:52 37.5 C 81 20 100/64 93 11/09/19 11:51 36.7 C 87 18 112/63 91 11/09/19 08:02 36.8 C 65 18 113/70 92 11/09/19 05:19 64 11/09/19 05:01 36.6 C 67 16 114/71 94
[2019-11-09] MEDS: DEXTROSE 5% 1,000 ML IV SCH (17:30)
[2019-11-10 00:24] LABS: BUN Creatinine Ratio 8.1 (10-20); Calcium 8.5 mg/dl (8.5-10.1); Creatinine Clr Calc Pharmacy 77.1 ml/min; Est GFR (African American) 104.4; Est GFR (Non-African American) 90.1; Potassium 4.1 mmol/L (3.5-5.1)
[2019-11-10] MEDS: DEXTROSE 5% 1,000 ML IV SCH (03:10)
[2019-11-10] MEDS: GABAPENTIN 600 MG TAB PO SCH ×2 (06:20→16:16)
[2019-11-10] MEDS ORDERED: LEVOTHYROXINE SODIUM 112 MCG TABLET PO SCH (06:30)
[2019-11-10 07:53] LABS: BUN Creatinine Ratio 6.4 (10-20); Calcium 8.4 mg/dl (8.5-10.1); Creatinine Clr Calc Pharmacy 82.4 ml/min; Est GFR (African American) 106.5; Est GFR (Non-African American) 91.9; Potassium 3.8 mmol/L (3.5-5.1)
[2019-11-10] MEDS: MULTIVITAMIN TAB PO SCH (07:55)
[2019-11-10] MEDS: THIAMINE HCL 100 MG TAB PO SCH (07:55)
[2019-11-10] MEDS: FOLIC ACID 1 MG TAB PO SCH (07:55)
[2019-11-10] MEDS ORDERED: ENOXAPARIN INJ 40 MG/0.4 ML SYR SQ SCH (09:00)
--- NOTE | 2019-11-10 16:47 | Hospitalist Progress Note ---
Date of Service November 10, 2019 Assessment & Plan (1) Fall: Possible related to alcohol intoxication vs syncopal episode Need to r/o any seizure activity Alcohol level above [address] head showed no acute intracranial abnormality Cervical CT showed no acute fracture or subluxation. Tele monitor showed no arrhythmia Echo showed left ventricle systolic function is normal. Left ventricular wall motion is normal. Grade 2 diastolic dysfunction. Ejection fraction 55 to 60% Denies any pain PT/OT on board Fall precaution Alcohol abuse Alcohol level 294 on admission Denies any history of alcohol withdrawal or DT Continue alcohol withdrawal protocol with gabapentin and Ativan Counseling on alcohol cessation Continue thiamine, folic acid and multivitamin Continue monitor closely for DT and alcohol withdrawal No sign of withdrawal symptoms noted She refused any inpatient rehab or outpatient alcohol program Hyponatremia Possible related to alcohol intake vs Diuretics (Pt said that she is on a water pills ) On admission Na 129, Serum osmolarity 349, urine osmolarity 139 and anion gap 12 Received IV NSS Most recent Na level 142 (Corrected too fast in less than 24 hrs) Normal anion gap now Will D/C D5 water Na 141 today Resolved Elevated Lactic acid Mostly related to Alcohol intoxication Lactic acid peaked to 3.2 No signs of infection CXR showed negative Afebrile, No leukocytosis, Procalcitonin normal Received IVF, lactic acid normalized Hypokalemia Potassium on admission 2.6 Received K supplement K 3.8 today Check BMP in 1 week Resolved Mood disorder Pt said that she is on antipsychotic medication Not sure if pt is on any SSRI Will defer to PCP if pt is on SSRI to monitor her sodium level Stable Hypothyroidism TSH wnl Pt said that she is on levothyroxine Will continue on discharge DVT px on SCDs On Lovenox subq CODE STATUS DNR/DNI Disposition Discharge home today Admission and Anticipated Discharge Date Admission Date: November 09, 2019 Subjective Pt was seen and examined Sitting in chair with no distress She said that she feels fine She would like to go home today She refused any inpatient rehab or outpatient alcohol program Denies any chest pain, palpitation, dizziness, palpitation, hallucination and SOB Physical Exam 2 Physical Exam: General- No acute distress Head- atraumatic Eyes- PERRL, EOMI, ENT- oropharynx clear Neck- supple, no JVD Lungs- clear to auscultation Heart- regular rhythm; no murmur Abdomen- normal bowel sounds, soft, nontender Extremities- no calf tenderness Neuro- alert, oriented x 3; PERRL, EOMI; no facial palsy; no dysarthria Skin- warm & dry Results & Data Results & Data ([facility]) Vital Signs (Past 12 Hours) Vital Signs Temp Pulse Resp BP Pulse Ox 11/10/19 15:38 37.0 C 71 18 115/72 96 11/10/19 11:19 36.3 C L 64 18 122/80 97 11/10/19 07:03 36.7 C 66 20 122/76 97
[2019-11-11] MEDS ORDERED: GABAPENTIN 600 MG TAB PO SCH (03:05)
--- NOTE | 2019-11-11 09:29 | Discharge Summary ---
Date of Service November 10, 2019 Admission HPI Per Admitting Provider History obtained from patient and records. Medical history significant for mood disorder, hypothyroidism, alcohol abuse. Patient was drinking by herself at a local bar in [facility] last night. She left the bar to go home. Thinks she may have passed out outside the bar. May have drank too much as per patient. Patient denies chest pain, S OB, tongue biting, incontinence. No witnessed seizures. Bleeding wound noted on occipital area as per EMS. Patient denies headache symptoms. Although depression not the best. Patient denies suicidality. No history of confinements for alcohol withdrawal. 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 Admission Exam Per Admitting Provider GENERAL: Comfortable, slight restless, alcoholic fetor, no respiratory distress SKIN: Normal color, warm HEENT: Dried blood occiput, Maynard palpebral conjunctivae, no ptosis, dry buccal mucosa NECK : Supple, short neck, no tenderness CHEST : Decreased breath sounds, no tenderness HEART : RRR, no obvious murmurs ABDOMEN: Some distention, nontender EXTREMITIES : No LE swelling/tenderness, no other conspicuous deformities noted NEUROLOGIC : Coherent, no facial asymmetry, no other gross focality Principal Diagnosis Fall: Alcohol intoxication Alcohol abuse Hyponatremia (Low Sodium) Elevated Lactic acid Hypokalemia (Low Potassium) Discharge Exam General- No acute distress Head- atraumatic Eyes- PERRL, EOMI, ENT- oropharynx clear Neck- supple, no JVD Lungs- clear to auscultation Heart- regular rhythm; no murmur Abdomen- normal bowel sounds, soft, nontender Extremities- no calf tenderness Neuro- alert, oriented x 3; PERRL, EOMI; no facial palsy; no dysarthria Skin- warm & dry Discharge Data Allergies Allergy/AdvReac Type Severity Reaction Status Date / Time No Known Allergies Allergy Unverified 11/08/19 23:48 Consultations 11/09/19 02:04 ED Decision to Admit Stat 11/09/19 04:46 Consult Case Management - Discharge Planning Routine Ordered Studies 11/08/19 23:30 CT cervical spine wo con Urgent 11/08/19 23:31 CT head/brain wo con Urgent [facility], [place] [phone] CT Scan Report Patient: SIRIA RIZZOAdmit Date: 11/09/19 MR#: [id number]: [id number] Acct ID:[id number]: [facility] Zip: [place] [id number] Age: 69Location: 2N Sex: F Room/Bed: [facility] Att Phy: Kellie Salazar M.D.Diagnosis: HYPONATREMIA, POSS SYNCOPE Juju Phy: Jenna Adams-CService Date: 11/08/19 Fam Phy:Interpreting Phy: John Dominguez Admit Phy: Gordo Vargas MD Ordering Phy: Eliot Oconnor DO cc: ~ CT cervical spine wo con CT DOSE: 999.01 mGy.cm CLINICAL HISTORY: 69 years-old Female with fll. Acute head and neck injury status post fall COMPARISON: Head CT of same day TECHNIQUE: Multiple axial CT images of the cervical spine were obtained without contrast. A dose lowering technique was utilized adhering to the principles of ALARA. FINDINGS: Mildly demineralized appearance the bones. Reversal the normal cervical lordosis. Grade 1 anterolisthesis C4 on C5 likely secondary to long-standing facet arthrosis. Mild multilevel disc space narrowing. Moderate to severe disc space narrowing at C6-C7 with moderate disc osteophyte complex. Severe multilevel facet arthrosis. Multilevel annular disc bulging. Evaluation of the central canal and neuroforamina is better assessed by MRI. There is multilevel foraminal narrowing noted which is at least mild. Right-sided foraminal narrowing at C3-C4 appears to be severe. No acute fracture or subluxation identified. Mastoid air cells are clear. No pneumothorax or prevertebral soft tissue swelling. IMPRESSION: No acute fracture or subluxation. ACT 112: Negative or not required by law. The above report was generated using voice recognition software. It may contain grammatical, syntax or spelling errors. Electronically signed by: Camden Dominguez M.D. 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 No acute fracture, dislocation or avascular necrosis. Soft tissues are unremarkable. IMPRESSION: No acute fracture or dislocation. ACT 112: Negative or not required by law. The above report was generated using voice recognition software. It may contain grammatical, syntax or spelling errors. Electronically signed by: Camden Dominguez M.D. 11/09/2019 8:53 AM Dictated: 11/09/19851 Transcribed: 11/09/19851 XR chest 1V portable HISTORY: 69 years-old Female fall acute chest trauma status post fall COMPARISON: None TECHNIQUE: Portable AP view of the chest FINDINGS: The cardiac silhouette is mildly enlarged. No pneumothorax, pleural effusion, airspace consolidation or overt pulmonary edema. Bones of the chest appear grossly intact. IMPRESSION: No acute process. ACT 112: Negative or not required by law. The above report was generated using voice recognition software. It may contain grammatical, syntax or spelling errors. Electronically signed by: Camden Dominguez M.D. 11/09/2019 8:55 AM Dictated: 11/09/1951 Transcribed: 11/09/19852 CT head/brain wo con CLINICAL HISTORY: 69 years-old Female with syncope. Acute syncope TECHNIQUE: Multiple axial CT images of the head were obtained without contrast. A dose lowering technique was utilized adhering to the principles of ALARA. COMPARISON: None. FINDINGS: No acute intracranial hemorrhage, midline shift, intracranial mass, hydrocephalus, territorial ischemia or abnormal extra-axial collection. There are a few minimal white matter hypodensities which are suggestive of chronic microvascular ischemic disease. Mild age-related involutional changes. Prior bilateral lens replacement. The calvarium is intact. The paranasal sinuses, mastoid air cells, and middle ear cavities are clear. IMPRESSION: No acute intracranial abnormality or calvarial fracture. ACT 112: Negative or not required by law. The above report was generated using voice recognition software. It may contain grammatical, syntax or spelling errors. Electronically signed by: Camden Dominguez M.D. 11/09/2019 8:38 AM Dictated: 11/09/19835 Transcribed: 11/09/19835 Hospital Course (1) Fall: Possible related to alcohol intoxication vs syncopal episode Need to r/o any seizure activity Alcohol level above [address] head showed no acute intracranial abnormality Cervical CT showed no acute fracture or subluxation. Tele monitor showed no arrhythmia Echo showed left ventricle systolic function is normal. Left ventricular wall motion is normal. Grade 2 diastolic dysfunction. Ejection fraction 55 to 60% Denies any pain PT/OT on board Fall precaution Alcohol abuse Alcohol level 294 on admission Denies any history of alcohol withdrawal or DT Continue alcohol withdrawal protocol with gabapentin and Ativan Counseling on alcohol cessation Continue thiamine, folic acid and multivitamin Continue monitor closely for DT and alcohol withdrawal No sign of withdrawal symptoms noted She refused any inpatient rehab or outpatient alcohol program Hyponatremia Possible related to alcohol intake vs Diuretics (Pt said that she is on a water pills ) On admission Na 129, Serum osmolarity 349, urine osmolarity 139 and anion gap 12 Received IV NSS Most recent Na level 142 (Corrected too fast in less than 24 hrs) Normal anion gap now Will D/C D5 water Na 141 today Resolved Elevated Lactic acid Mostly related to Alcohol intoxication Lactic acid peaked to 3.2 No signs of infection CXR showed negative Afebrile, No leukocytosis, Procalcitonin normal Received IVF, lactic acid normalized Hypokalemia Potassium on admission 2.6 Received K supplement K 3.8 today Check BMP in 1 week Resolved Mood disorder Pt said that she is on antipsychotic medication Not sure if pt is on any SSRI Will defer to PCP if pt is on SSRI to monitor her sodium level Stable Hypothyroidism TSH wnl Pt said that she is on levothyroxine Will continue on discharge DVT px on SCDs On Lovenox subq CODE STATUS DNR/DNI Disposition Discharge home today Total Time Total Time Spent Total Time Spent (In Minutes): 35 minutes Total Time Includes: Examination of the Patient, Discharge Planning, Medication Reconciliation, Communication With Other Providers and Other Discharge Plan Discharge Items Patient Disposition: Home - Self-Care Reason For Visit: HYPONATREMIA, POSS SYNCOPE Discharge Diagnosis: Fall: alcohol intoxication Alcohol abuse Hyponatremia (Low Sodium) Elevated Lactic acid Hypokalemia (Low Potassium) Condition on Discharge: Good Activity: Resume your previous activity Non-emergency contact: Primary Care Provider Call non-emergency contact if: you have any medication questions Follow-up/Referrals: Jenna Adams PA-C [Primary Care Provider] - 11/14/19 11:00 am Diet: Heart Healthy Addtl Attending Provider Instructions: Follow up with your primary care provider Angie DEGROOT within 1 week Counseling on alcohol cessation Fall precaution Check BMP in 1 week to monitor your electrolytes (Your provider will order it at your next follow up appointment) Continue your home medications on discharge Pending Studies at Discharge: No Stand-Alone Forms: My [facility], Smoking Cessation Medications and DC Order Prescriptions: New thiamine HCl (vitamin B1) [Vitamin B-1] 100 mg Tablet 100 mg PO QAM 30 Days Qty: 30 RF: 0 folic acid 1 mg Tablet 1 mg PO QAM 30 Days Qty: 30 RF: 0 No Action No Known Home Medications RF: 0 Discharge Orders: Discharge Order (Routine); Ordered 11/10/19 Ordered By: Kellie Salazar Admission Data Admit Date/Time: 11/09/19 03:03 Attending Provider: Kellie Salazar Admit Provider: Gordo Vargas Primary Care Provider: Jenna Adams Other Providers: Gordo Vargas Other Interventions: Discharge Summary Assessment (RN) Last Done: 11/10/19 17:25 DC Date/Time DO NOT enter until pt leaves facility: 11/10/19 19:51
[2019-11-12] MEDS ORDERED: GABAPENTIN 600 MG TAB PO SCH (15:05)
== END 2019-11-10 19:51 | disposition home or self-care (01) | DRG 897 ==
LOC: ED 23:16 → 2N 11-09 03:03

== ENCOUNTER 2024-09-07 09:19 | Inpatient (IN) ==
--- NOTE | 2024-09-07 09:46 | Emergency Department Note ---
Impression & Plan Bimalleolar fracture of left ankle, Fall, Closed dislocation of left ankle, Fracture of metatarsal of left foot, closed, Heart block AV second degree ED Provider Note NAME: SIRIA RIZZO AGE: 74 SEX: F : 1950 ARRIVES VIA: Walk-In INFORMANT: Patient, ED PROVIDER(S): Eliot Oconnor DO CHIEF COMPLAINT: Leg pain HPI: The patient is a 74-year-old female who presented to the emergency department for evaluation of ankle pain. The patient had a slip and fall while she was taking out her garbage. She states that she is unsure exactly what happened but thinks she may have twisted her left leg. The patient did not strike her head. She denies having any head or neck pain. She denies having any loss of conscious. The patient states that she does have swelling in this ankle from time to time but the swelling is worse than usual. She denies having any numbness in the foot. ROS: See above HPI for pertinent positives & negatives. A total of 10 systems reviewed and were otherwise negative. PAST MEDICAL HISTORY: See Below PAST SURGICAL HISTORY: See Below FAMILY HISTORY: See Below SOCIAL HISTORY: See Below HOME MEDICATIONS: See Below ALLERGIES: See Below VITALS: See Below PHYSICAL EXAMINATION: GENERAL: Patient is awake alert in no acute distress patient is resting comfortably and showing no signs of anxiety EYES: The conjunctivae are clear. The pupils are round and reactive. EARS, NOSE, MOUTH AND THROAT: The nose is without any evidence of any deformity. NECK: The neck is nontender and supple. RESPIRATORY: Normal respiratory effort is noted there is no evidence of wheezing rhonchi or rales CARDIOVASCULAR: Regular rate and rhythm noted there no murmurs rubs or gallops normal S1 normal S2. GASTROINTESTINAL: The abdomen is soft. Abdomen is nontender. BACK: No midline tenderness or or step-off noted range of motion in flexion extension as well as rotation no signs of muscle spasm noted MUSCULOSKELETAL/EXTREMITIES: There is no evidence of gross deformity full range of motion is noted in the hips and shoulders. There is significant swelling and crepitus noted of the left ankle. There is tenderness over the lateral left foot. There is no tenderness over the proximal fibular head. SKIN: There is no obvious evidence of any rash. There is swelling noted to the left ankle. NEUROLOGIC: Patient is awake alert and oriented x3 MEDICAL DECISION MAKING: The patient is a 74-year-old female who presented to the emergency department for an evaluation of left ankle injury. The patient was found to have an ankle that was deformed clinically. She had an ankle that revealed a bimalleolar fracture with dislocation as well as multiple metatarsal fractures. The patient was treated with sedation we were able to reduce the ankle. Postreduction x-ray showed significant improvement. The patient's pain level also improved. The patient was treated with pain medication. She was reevaluated multiple times. During the reduction the patient did have an episode of hypoxia requiring [id number]. This was very brief but the patient was shown to have some episodes of secondary heart block during this. I discussed patient's laboratory and radiographic studies with her. I discussed her condition with the on-call orthopedic physician as well as the on-call [facility] hospitalist group. The patient will require medical clearance but then also operative management. They have agreed to evaluate the patient in the emergency department. Triage Nursing notes reviewed. Prior medical records reviewed Vital Signs: reviewed and remarkable for no significant abnormalities Differential diagnosis: Fracture, subluxation, dislocation, contusion, ligamentous injury, neurovascular, compartment syndrome, rhabdomyolysis, as well as other pathologies. ER treatment provided: See below Diagnostics interpreted by me: ECG: EKG was obtained in the emergency department. My interpretation is normal sinus rhythm at 73 bpm. No PVCs were noted. Right bundle branch block pattern was noted. This was compared to a tracing from December 05, 2019. No changes were noted. engine monitor strip was reviewed. My interpretation is secondary heart block type II was noted at 56 bpm. No PVCs were noted. Cardiac Monitoring: An order was placed for continuous cardiac monitoring. The monitor shows a rate of 69 bpm with sinus rhythm. Laboratory studies: As stated above and show below. Imaging studies: See below. Radiographic imaging was reviewed by myself Consultation(s): I discussed this case with Les who is on for orthopedics. I discussed this case with Ashlee who is on for the [facility] hospitalist group. Past Med/Surg History Problem List Trimalleolar fracture of left ankle Heart block AV second degree (Acute) Fracture of metatarsal of left foot, closed (Acute) Closed dislocation of left ankle (Acute) Fall (Acute) Bimalleolar fracture of left ankle (Acute) Fall Alcoholic intoxication (Acute) Syncope (Acute) Acute hyponatremia (Acute) Hypokalemia (Acute) Medical History Lymphedema Depression Surgical History History of cholecystectomy Family History Father Diabetes Social History Smoking Status: Never smoker Hx Alcohol Use: Yes Alcohol type: beer Hx Substance Use: No Preferred Language: Haitian Communication Ability: Effective Food Checker Required: No Beliefs That Will Affect Care: None Current Living Situation: Family Current Living Situation Comment: home with Merle agee Feellawrence Safe at Home: Yes Assistive Devices: None Allergies Allergies Allergy/AdvReac Type Severity Reaction Status Date / Time No Known Allergies Allergy Unverified 09/07/24 11:35 Home Meds Home Medications Medication Instructions Recorded Confirmed furosemide 40 mg tablet 40 mg PO QAM 09/07/24 09/07/24 levothyroxine 137 mcg tablet 137 mcg PO DAILY 09/07/24 09/07/24 sertraline 50 mg tablet 50 mg PO DAILY 09/07/24 09/07/24 simvastatin 40 mg tablet 40 mg PO HS 09/07/24 09/07/24 Results & Data (ED) Vital Signs Vital Signs - 24 hr 09/07/24 09:25 09/07/24 10:30 09/07/24 10:35 Temperature 36.6 C Temperature Source Temporal Artery Scan Pulse Rate 70 67 Pulse Rate [Apical] 73 Pulse Rate from SpO2 Sensor Respiratory Rate 20 18 Respiratory Effort / Characteristics Non-Labored Spontaneous Non-Labored Spontaneous Respiratory Depth Normal Normal Respiratory Pattern Regular Blood Pressure 130/69 Blood Pressure [Left Arm] 131/77 Blood Pressure Mean 89 Blood Pressure Mean [Left Arm] 95 Pulse Oximetry 96 92 Oxygen Delivery Method Room Air Room Air Oxygen Flow Rate Sepsis Recent Fever Within 48 Hours No Sepsis New/Unexplained Change in Mental Status N/A Sepsis Action Taken by Nursing No Action Required End-Tidal CO2 09/07/24 10:39 09/07/24 10:42 09/07/24 10:54 Temperature Temperature Source Pulse Rate 67 67 72 Pulse Rate [Apical] Pulse Rate from SpO2 Sensor 67 67 70 Respiratory Rate Respiratory Effort / Characteristics Respiratory Depth Respiratory Pattern Blood Pressure Blood Pressure [Left Arm] Blood Pressure Mean Blood Pressure Mean [Left Arm] Pulse Oximetry 94 93 93 Oxygen Delivery Method Room Air Room Air Room Air Oxygen Flow Rate Sepsis Recent Fever Within 48 Hours Sepsis New/Unexplained Change in Mental Status Sepsis Action Taken by Nursing End-Tidal CO2 09/07/24 11:00 09/07/24 11:12 09/07/24 11:14 Temperature Temperature Source Pulse Rate 73 50 L Pulse Rate [Apical] Pulse Rate from SpO2 Sensor 54 L Respiratory Rate 18 15 2 L Respiratory Effort / Characteristics Respiratory Depth Shallow Respiratory Pattern Blood Pressure 111/66 128/62 Blood Pressure [Left Arm] Blood Pressure Mean 96 84 Blood Pressure Mean [Left Arm] Pulse Oximetry 94 98 62 L Oxygen Delivery Method Room Air Nasal Cannula Ambu-Bag Oxygen Flow Rate 4 Sepsis Recent Fever Within 48 Hours Sepsis New/Unexplained Change in Mental Status Sepsis Action Taken by Nursing End-Tidal CO2 48 09/07/24 11:15 09/07/24 11:15 09/07/24 11:17 Temperature Temperature Source Pulse Rate 62 Pulse Rate [Apical] Pulse Rate from SpO2 Sensor 54 L Respiratory Rate 15 16 18 Respiratory Effort / Characteristics Spontaneous Respiratory Depth Shallow Shallow Respiratory Pattern Blood Pressure 124/78 Blood Pressure [Left Arm] Blood Pressure Mean 93 Blood Pressure Mean [Left Arm] Pulse Oximetry 97 98 97 Oxygen Delivery Method Nasal Cannula Nasal Cannula Nasal Cannula Oxygen Flow Rate 4 5 5 Sepsis Recent Fever Within 48 Hours Sepsis New/Unexplained Change in Mental Status Sepsis Action Taken by Nursing End-Tidal CO2 47 09/07/24 11:18 09/07/24 11:20 09/07/24 11:21 Temperature Temperature Source Pulse Rate 80 52 L Pulse Rate [Apical] Pulse Rate from SpO2 Sensor 76 Respiratory Rate 16 17 Respiratory Effort / Characteristics Non-Labored Spontaneous Respiratory Depth Normal Respiratory Pattern Blood Pressure Blood Pressure [Left Arm] Blood Pressure Mean Blood Pressure Mean [Left Arm] Pulse Oximetry 99 98 Oxygen Delivery Method Nasal Cannula Nasal Cannula Oxygen Flow Rate 5 2 Sepsis Recent Fever Within 48 Hours Sepsis New/Unexplained Change in Mental Status Sepsis Action Taken by Nursing End-Tidal CO2 37 09/07/24 11:21 09/07/24 11:22 09/07/24 11:24 Temperature Temperature Source Pulse Rate 64 Pulse Rate [Apical] Pulse Rate from SpO2 Sensor 69 Respiratory Rate 19 18 16 Respiratory Effort / Characteristics Non-Labored Spontaneous Non-Labored Spontaneous Respiratory Depth Normal Normal Respiratory Pattern Blood Pressure 114/69 Blood Pressure [Left Arm] Blood Pressure Mean 84 Blood Pressure Mean [Left Arm] Pulse Oximetry 99 98 97 Oxygen Delivery Method Nasal Cannula Nasal Cannula Nasal Cannula Oxygen Flow Rate 5 2 2 Sepsis Recent Fever Within 48 Hours Sepsis New/Unexplained Change in Mental Status Sepsis Action Taken by Nursing End-Tidal CO2 40 09/07/24 11:27 09/07/24 11:29 09/07/24 11:30 Temperature Temperature Source Pulse Rate 72 64 Pulse Rate [Apical] Pulse Rate from SpO2 Sensor Respiratory Rate 17 16 18 Respiratory Effort / Characteristics Non-Labored Spontaneous Respiratory Depth Normal Respiratory Pattern Blood Pressure 109/67 Blood Pressure [Left Arm] Blood Pressure Mean 79 Blood Pressure Mean [Left Arm] Pulse Oximetry 95 97 95 Oxygen Delivery Method Room Air Room Air Room Air Oxygen Flow Rate Sepsis Recent Fever Within 48 Hours Sepsis New/Unexplained Change in Mental Status Sepsis Action Taken by Nursing End-Tidal CO2 09/07/24 11:45 09/07/24 11:45 09/07/24 11:57 Temperature Temperature Source Pulse Rate 67 72 67 Pulse Rate [Apical] Pulse Rate from SpO2 Sensor 68 68 Respiratory Rate 13 17 15 Respiratory Effort / Characteristics Respiratory Depth Respiratory Pattern Blood Pressure 98/60 L 93/56 L Blood Pressure [Left Arm] Blood Pressure Mean 72 66 Blood Pressure Mean [Left Arm] Pulse Oximetry 95 94 94 Oxygen Delivery Method Room Air Room Air Room Air Oxygen Flow Rate Sepsis Recent Fever Within 48 Hours Sepsis New/Unexplained Change in Mental Status Sepsis Action Taken by Nursing End-Tidal CO2 09/07/24 12:00 09/07/24 12:06 09/07/24 12:15 Temperature Temperature Source Pulse Rate 72 70 68 Pulse Rate [Apical] Pulse Rate from SpO2 Sensor 71 69 Respiratory Rate 15 15 20 Respiratory Effort / Characteristics Respiratory Depth Respiratory Pattern Blood Pressure 92/58 L 104/55 L Blood Pressure [Left Arm] Blood Pressure Mean 69 75 Blood Pressure Mean [Left Arm] Pulse Oximetry 94 95 95 Oxygen Delivery Method Room Air Room Air Room Air Oxygen Flow Rate Sepsis Recent Fever Within 48 Hours Sepsis New/Unexplained Change in Mental Status Sepsis Action Taken by Nursing End-Tidal CO2 Home Medications Current Medication List: was personally reviewed by me Laboratory Data Attestation: I reviewed the patient's lab results. 09/07/24 10:30 09/07/24 10:30 Lab Results 09/07/24 Range/Units 10:30 WBC 7.77 (4.8-10.8) K/ul RBC 3.79 L (4.20-5.40) M/uL Hgb 13.1 (12.0-16.0) g/dl Hct 36.3 L (37.0-47.0) % MCV 95.8 (80.0-100.0) fL MCH 34.6 H (25.0-34.0) pg MCHC 36.1 H (32.0-36.0) g/dL RDW Std Deviation 41.3 (36.4-46.3) fL RDW Coeff of [place] 11.9 (11.5-14.5) % Plt Count 199 (130-400) K/uL MPV 9.6 (9.4-12.4) fL Immature Gran % (Auto) 0.1 % Neut % (Auto) 76.9 % Lymph % (Auto) 16.1 % [place] % (Auto) 6.2 % Eos % (Auto) 0.4 % Baso % (Auto) 0.3 % Neut # (Auto) 5.98 (1.40-6.50) K/uL Lymph # (Auto) 1.25 (1.20-3.40) K/uL [place] # (Auto) 0.48 (0.11-0.59) K/uL Eos # (Auto) 0.03 (0.00-0.50) K/uL Baso # (Auto) 0.02 (0.00-0.20) K/uL Immature Gran # (Auto) 0.01 (0.01-0.20) K/uL Sodium 131 L (136-145) mmol/L Potassium 3.9 (3.5-5.1) mmol/L Chloride 97 L (98-107) mmol/L Carbon Dioxide 26 (21-32) mmol/L Anion Gap 8 (3-11) BUN 4 L (6-23) mg/dl Creatinine 0.69 (0.6-1.2) mg/dl Est Cr Clr Drug Dosing 71.9 ml/min eGFR 92.15 BUN/Creatinine Ratio 5.8 L (10-20) Glucose 93 (70-99(Fasting)) mg/dl Osmolality 300 (280-300) mOsm/kg Calcium 8.5 L (8.6-10.3) mg/dl Total Bilirubin 0.6 (0.2-1.0) mg/dl AST 23 (13-39) U/L ALT 20 (7-52) U/L Alkaline Phosphatase 50 (34-104) U/L Troponin I High Sens 4.9 (0-14) pg/ml Total Protein 7.1 (6.0-8.3) gm/dl Albumin 4.3 (3.4-5.0) gm/dl Globulin 2.8 (2.5-4.0) gm/dl Albumin/Globulin Ratio 1.5 (0.9-2) Lipase 20 (11-82) U/L 25-OH Vitamin D Total 18.5 L (30-100) ng/ml TSH 1.959 (0.300-4.500) uIu/ml Lyme Disease Screen Negative (Negative) Administered Medications Sodium Chloride (Nss) 1,000 mls @ 80 mls/hr IV .[id number] ONE Stop: 09/08/24 01:13 Last Admin: 09/07/24 13:26 Dose: 80 mls/hr Documented By: KRISTINA Morphine Sulfate (Morphine Sulfate 2 Mg/Ml Carp) 2 mg IV Q3H PRN PRN Reason: Mod-Sev Pain (Scale 4-10) Stop: 09/21/24 14:21 Last Admin: 09/07/24 15:04 Dose: 2 mg Documented By: SOPHIE Discontinued Medications Thiamine HCl 200 mg/ Sodium (Chloride) 52 mls @ 210 mls/hr IV NOW STA Stop: 09/07/24 11:33 Last Infusion: 09/07/24 12:33 Dose: Infused Documented By: Admin: 09/07/24 12:18 Dose: 210 mls/hr Documented By: ARMANI Ketamine HCl (Ketamine Hcl 10mg/Ml Syr) 38 mg IV TODAY@1100 ARABELLA Stop: 09/07/24 12:00 Last Admin: 09/07/24 11:22 Dose: 38 mg Documented By: KATY Morphine Sulfate (Morphine Sulfate 10 Mg/Ml Carp/Vial) 6 mg IM NOW STA Stop: 09/07/24 09:43 Last Admin: 09/07/24 09:47 Dose: 6 mg Documented By: ARMANI Ondansetron HCl (Ondansetron 4 Mg Od Tab) 4 mg PO NOW STA Stop: 09/07/24 09:43 Last Admin: 09/07/24 09:47 Dose: 4 mg Documented By: ARMANI Propofol (Propofol Iv Emulsion 10 Mg/Ml 20 Ml Vial) 38 mg IV TODAY@1100 [facility] Stop: 09/07/24 12:00 Last Admin: 09/07/24 11:07 Dose: 38 mg Documented By: KATY Co-signed By: KRISTINA Propofol (Propofol Iv Emulsion 10 Mg/Ml 20 Ml Vial) 40 mg IV TODAY@1113 [facility] Stop: 09/07/24 12:00 Last Admin: 09/07/24 11:24 Dose: 40 mg Documented By: KATY Co-signed By: KRISTINA Imaging Data Attestation: I personally reviewed and interpreted this imaging study as follows: My Impression: 1 view chest x-ray was obtained in the emergency department. My interpretation is no free air or definite infiltrate, final report below. X-rays of the left ankle and left foot were obtained in the emergency department. My interpretation is bimalleolar fracture noted, metatarsal fractures noted, final report below. Radiologist's Impression: Ankle X-Ray 09/07/24 09:42 Clinical History: Injury 3 views of the left ankle are submitted for review. Findings: There is an acute displaced transverse fracture of the medial malleolus and there is a displaced and angulated fracture of the distal fibular metaphysis, with dislocation of the ankle joint. There are small dorsal and plantar calcaneal spurs. No significant arthritic changes are noted. No other osseous abnormality is identified. There are no radiopaque foreign bodies. Impression: Displaced fractures of the medial malleolus and distal fibular metaphysis, with dislocation of the ankle joint ACT 112: Positive. There are findings on this exam that require communication between the performing entity and the patient following Patient Test Result [place] Act ([place] 112) [place]. Electronically signed by Mario Olson 09-07-2024 10:31 AM Foot X-Ray 09/07/24 09:42 Clinical History: Fall 3 views of the left foot are submitted for review. Findings: There are nondisplaced fractures of the bases of the second, third, and fourth metatarsals. There is osteoarthritis of the great toe metatarsophalangeal joint. There are small dorsal and plantar calcaneal spurs. No other osseous abnormality is identified. There are no radiopaque foreign bodies. Impression: Nondisplaced fractures of the bases of the second, third, and fourth metatarsals ACT 112: Positive. There are findings on this exam that require communication between the performing entity and the patient following Patient Test Result [place] 112[place]. Electronically signed by Mario Olson 09-07-2024 10:28 AM Tibia/Fibula X-Ray 09/07/24 09:42 Clinical History: Fall 2 views of the left lower leg are submitted for review. Findings: There is an acute displaced transverse fracture of the medial malleolus and there is a displaced and angulated fracture of the distal fibular metaphysis, with dislocation of the ankle joint. There is joint space narrowing in the medial compartment of the left knee as well as osteophyte formation. No other osseous abnormality is identified. There are no radiopaque foreign bodies. Impression: 1. Displaced fractures of the medial malleolus and distal fibular metaphysis, with dislocation of the ankle joint 2. Mild to moderate severity left knee osteoarthritis ACT 112: Positive. There are findings on this exam that require communication between the performing entity and the patient following Patient Test Result [place] 112[place]. Electronically signed by Mario Olson 09-07-2024 10:32 AM Ankle X-Ray 09/07/24 11:19 Clinical History: Postreduction 2 views of the left ankle are submitted for review. Comparison is made to the prior examination obtained earlier today Findings: There has been interval partial reduction of the previously seen fractures of the medial malleolus and distal fibular metaphysis. Mild displacement remains. There is new cast material, which obscures fine bony detail. No significant arthritic changes are noted. No other osseous abnormality is identified. There are no radiopaque foreign bodies. Impression: Partial reduction of the previously seen fractures of the medial malleolus and distal fibular metaphysis ACT 112: Positive. There are findings on this exam that require communication between the performing entity and the patient following Patient Test Result [place] 112[place]. Electronically signed by Mario Olson 09-07-2024 12:10 PM Chest X-Ray 09/07/24 11:19 Technique: A frontal view of the chest was obtained Comparison is made to the prior examination dated 11/08/2019 Findings: There are no confluent pulmonary infiltrates. The heart size is within normal limits. No pleural effusion or pneumothorax is seen. There is no definite pulmonary nodule. No fracture is noted. No foreign body is seen Impression: No active disease Electronically signed by Mario Olson 09-07-2024 12:10 PM Discharge Plan Visit Data Chief Complaint: Fall Stated Complaint: FALL, LEFT ANKLE PAIN ED Provider: Eliot Oconnor Discharge Problem: Bimalleolar fracture of left ankle, Fall, Closed dislocation of left ankle, Fracture of metatarsal of left foot, closed, Heart block AV second degree Patient Disposition: Admitted As Inpatient Condition: Good Discharge Instructions Interventions: ED Discharge Assessment Last Done: 09/07/24 14:00
[2024-09-07] MEDS: ONDANSETRON 4 MG OD TAB PO STA (09:47)
[2024-09-07] MEDS: MoRPHine SULFATE 10 MG/ML CARP/VIAL IM STA (09:47)
--- NOTE | 2024-09-07 10:28 | XRay Report ---
Clinical History: Fall 3 views of the left foot are submitted for review. Findings: There are nondisplaced fractures of the bases of the second, third, and fourth metatarsals. There is osteoarthritis of the great toe metatarsophalangeal joint. There are small dorsal and plantar calcaneal spurs. No other osseous abnormality is identified. There are no radiopaque foreign bodies. Impression: Nondisplaced fractures of the bases of the second, third, and fourth metatarsals ACT 112: Positive. There are findings on this exam that require communication between the performing entity and the patient following Patient Test Result [place] 112[place]. Electronically signed by Mario Olson 09-07-2024 10:28 AM
--- NOTE | 2024-09-07 10:31 | XRay Report ---
Clinical History: Injury 3 views of the left ankle are submitted for review. Findings: There is an acute displaced transverse fracture of the medial malleolus and there is a displaced and angulated fracture of the distal fibular metaphysis, with dislocation of the ankle joint. There are small dorsal and plantar calcaneal spurs. No significant arthritic changes are noted. No other osseous abnormality is identified. There are no radiopaque foreign bodies. Impression: Displaced fractures of the medial malleolus and distal fibular metaphysis, with dislocation of the ankle joint ACT 112: Positive. There are findings on this exam that require communication between the performing entity and the patient following Patient Test Result [place] Act ([place] 112) [place]. Electronically signed by Mario Olson 09-07-2024 10:31 AM
--- NOTE | 2024-09-07 10:31 | Emergency Department Note ---
Pre Sedation Assessment Vital Signs Temp Pulse Pulse Resp BP BP Pulse Ox 09/07/24 11:21 52 L 09/07/24 10:35 67 09/07/24 10:30 73 18 131/77 92 09/07/24 09:25 36.6 C 70 20 130/69 96 O2 Del Method 09/07/24 11:21 09/07/24 10:35 09/07/24 10:30 Room Air 09/07/24 09:25 Room Air Cardiovascular RRR, no murmur, no edema + regular rate + S1 normal and + S2 normal no JVD + capillary refill normal and + edema (LLE) Respiratory normal respiratory effort, lungs clear to auscultation + respiratory effort normal; no respiratory distress and no retractions + clear to auscultation bilaterally Pre-Sedation Airway Assessment Smoking Status: Never smoker Hx Sleep Apnea: No Short, Thick Neck: No Oral Cavity: + Dentures; no Loose Teeth Mallampati Class: I ASA: ASA2 NPO Status Date of Last Intake of Fluids: 09/06/24 Time of Last Intake of Fluids: 20:00 Date of Last Intake of Solid Food: 09/06/24 Time of Last Intake of Solid Foods: 20:00 Procedure Planning Contraindications for Sedation: none Current Medications Reviewed: Yes Notes The planned sedation has been discussed with the patient. Informed Consent was obtained. I have identified the patient, determined the appropriateness of sed ation and have assessed the patient immediately prior to the procedure. All medicine(s) and interventions are by my order.
--- NOTE | 2024-09-07 10:32 | XRay Report ---
Clinical History: Fall 2 views of the left lower leg are submitted for review. Findings: There is an acute displaced transverse fracture of the medial malleolus and there is a displaced and angulated fracture of the distal fibular metaphysis, with dislocation of the ankle joint. There is joint space narrowing in the medial compartment of the left knee as well as osteophyte formation. No other osseous abnormality is identified. There are no radiopaque foreign bodies. Impression: 1. Displaced fractures of the medial malleolus and distal fibular metaphysis, with dislocation of the ankle joint 2. Mild to moderate severity left knee osteoarthritis ACT 112: Positive. There are findings on this exam that require communication between the performing entity and the patient following Patient Test Result [place] ([place] 112[place]. Electronically signed by Mario Olson 09-07-2024 10:32 AM
--- NOTE | 2024-09-07 10:32 | Emergency Department Note ---
Post Sedation Assessment Vital Signs Temp Pulse Pulse Resp BP BP Pulse Ox 09/07/24 12:15 68 20 104/55 L 95 09/07/24 12:06 70 15 95 09/07/24 12:00 72 15 92/58 L 94 09/07/24 11:57 67 15 94 09/07/24 11:45 72 17 93/56 L 94 09/07/24 11:45 67 13 98/60 L 95 09/07/24 11:30 64 18 109/67 95 09/07/24 11:29 72 16 97 09/07/24 11:27 17 95 09/07/24 11:24 16 97 09/07/24 11:22 18 98 09/07/24 11:21 64 19 114/69 99 09/07/24 11:21 52 L 09/07/24 11:20 17 98 09/07/24 11:18 80 16 99 09/07/24 11:17 18 97 09/07/24 11:15 16 98 09/07/24 11:15 62 15 124/78 97 09/07/24 11:14 2 L 62 L 09/07/24 11:12 50 L 15 128/62 98 09/07/24 11:00 73 18 111/66 94 09/07/24 10:54 72 93 09/07/24 10:42 67 93 09/07/24 10:39 67 94 09/07/24 10:35 67 09/07/24 10:30 73 18 131/77 92 09/07/24 09:25 36.6 C 70 20 130/69 96 O2 Del Method O2 Flow Rate 09/07/24 12:15 Room Air 09/07/24 12:06 Room Air 09/07/24 12:00 Room Air 09/07/24 11:57 Room Air 09/07/24 11:45 Room Air 09/07/24 11:45 Room Air 09/07/24 11:30 Room Air 09/07/24 11:29 Room Air 09/07/24 11:27 Room Air 09/07/24 11:24 Nasal Cannula 2 09/07/24 11:22 Nasal Cannula 2 09/07/24 11:21 Nasal Cannula 5 09/07/24 11:21 09/07/24 11:20 Nasal Cannula 2 09/07/24 11:18 Nasal Cannula 5 09/07/24 11:17 Nasal Cannula 5 09/07/24 11:15 Nasal Cannula 5 09/07/24 11:15 Nasal Cannula 4 09/07/24 11:14 Ambu-Bag 09/07/24 11:12 Nasal Cannula 4 09/07/24 11:00 Room Air 09/07/24 10:54 Room Air 09/07/24 10:42 Room Air 09/07/24 10:39 Room Air 09/07/24 10:35 09/07/24 10:30 Room Air 09/07/24 09:25 Room Air Recovery Score Activity: Moves 4 extremities Respiration: Deep Breath/Cough Circulation: +/-20% PreAnes Value Consciousness: Fully Awake Oxygen Saturation: > 92% On Room Air Discharge Sedation Level of Care: Phase I Unexpected Event: Ambu Bag Post Sedation Plan On clinical assessment, the patient appears to have tolerated the sedation without complications. Patient is recovering as anticipated. Patient will continue to be monitored by nursing and may be discharged when sedation discharge criteria are met per below protocol. Upon Completions of procedure up to 15 minutes continue every 5 minute vital signs and the P.A.R. score; then discharge to a Phase I or Fast Track to Phase II per the following guidelines: * Discharge Patient to appropriate Phase II area if PAR is 8 or greater or return to pre- procedure baseline. The post - procedure orders will be as directed. * If PAR score is less than 8 or not return to pre-procedure baseline then patient will follow Phase I monitoring till PAR is reached for Phase II. The Phase I may be done in procedure room or may call to secure a Phase I area. * If naloxone or flumazenil are used for reversal, hold in Phase I for continued monitoring from when last reversal dose was given for a minimum of 60 minutes or longer pending the nurse and/or physician discretion of patient condition before discharge to Phase II. Please call the Sedation Physician to re-evaluate and complete post-note for discharge to Phase II area. Do NOT discharge from procedure sedation or Phase 1 until post- sedation evaluation note is complete by procedure /sedation MD Sedation Discharge Instructions to be given to the patient at discharge to home. Sedation Data Time Out Team Members Agree on the Following: Correct Patient, Correct Procedure, Correct Site-Side and Allergies Verified Team Agrees: Yes Time Out Performed Time: 11:04 Sedation Times Sedation Start Date: 09/07/24 Sedation Start Time: 11:05 Sedation End Date: 09/07/24 Sedation End Time: 11:22 Total Sedation Time: 17 Procedure Times Procedure Start Time:: 11:08 Procedure End Time: 11:18
[2024-09-07] MEDS: PROPOFOL IV EMULSION 10 MG/ML 20 ML VIAL IV SCH ×2 (11:07→11:24)
[2024-09-07] MEDS: KETAMINE HCL 10MG/ML SYR IV SCH (11:22)
--- NOTE | 2024-09-07 11:24 | Emergency Department Note ---
Impression & Plan Bimalleolar fracture of left ankle, Fall, Closed dislocation of left ankle, Fracture of metatarsal of left foot, closed, Heart block AV second degree ED Provider Note I was asked to reduce this patient's left ankle by Dr. Oconnor. Please see his dictation for full history and physical. He performed the sedation for the procedure. Procedure: After the patient was adequately sedated, reduction of the left ankle trimalleolar fracture was performed. Traction was applied, eversion of the ankle was performed with successful reduction of the ankle by palpation. Unfortunately, the fracture pattern is highly unstable and dislocated easily. Additional reduction was performed and the foot was kept in an inverted position with which helped with maintaining reduction. The patient was splinted by me with Ortho-Glass using a posterior and coaptation splint. Neurovascular status was checked after the splint placement.Postreduction films were obtained. They confirmed improvement in alignment, though she was not fully reduced. The patient will require ORIF for stabilization. Please see Dr. Geiger's dictation for final management. Past Med/Surg History Problem List Trimalleolar fracture of left ankle Heart block AV second degree (Acute) Fracture of metatarsal of left foot, closed (Acute) Closed dislocation of left ankle (Acute) Fall (Acute) Bimalleolar fracture of left ankle (Acute) Fall Alcoholic intoxication (Acute) Syncope (Acute) Acute hyponatremia (Acute) Hypokalemia (Acute) Medical History Lymphedema Depression Surgical History History of cholecystectomy Family History Father Diabetes Social History Smoking Status: Never smoker Hx Alcohol Use: Yes Alcohol type: beer Hx Substance Use: No Preferred Language: Panamanian Communication Ability: Effective Drum Puller Required: No Beliefs That Will Affect Care: None Current Living Situation: Family Current Living Situation Comment: home with daughterMerle Feels Safe at Home: Yes Assistive Devices: None Allergies Allergies Allergy/AdvReac Type Severity Reaction Status Date / Time No Known Allergies Allergy Unverified 09/07/24 11:35 Home Meds Home Medications Medication Instructions Recorded Confirmed furosemide 40 mg tablet 40 mg PO QAM 09/07/24 09/07/24 levothyroxine 137 mcg tablet 137 mcg PO DAILY 09/07/24 09/07/24 sertraline 50 mg tablet 50 mg PO DAILY 09/07/24 09/07/24 simvastatin 40 mg tablet 40 mg PO HS 09/07/24 09/07/24 Results & Data (ED) Vital Signs Vital Signs - 24 hr 09/07/24 09:25 09/07/24 10:30 09/07/24 10:35 Temperature 36.6 C Temperature Source Temporal Artery Scan Pulse Rate 70 67 Pulse Rate [Apical] 73 Pulse Rate from SpO2 Sensor Respiratory Rate 20 18 Respiratory Effort / Characteristics Non-Labored Spontaneous Non-Labored Spontaneous Respiratory Depth Normal Normal Respiratory Pattern Regular Blood Pressure 130/69 Blood Pressure [Left Arm] 131/77 Blood Pressure Mean 89 Blood Pressure Mean [Left Arm] 95 Pulse Oximetry 96 92 Oxygen Delivery Method Room Air Room Air Oxygen Flow Rate Sepsis Recent Fever Within 48 Hours No Sepsis New/Unexplained Change in Mental Status N/A Sepsis Action Taken by Nursing No Action Required End-Tidal CO2 09/07/24 10:39 09/07/24 10:42 09/07/24 10:54 Temperature Temperature Source Pulse Rate 67 67 72 Pulse Rate [Apical] Pulse Rate from SpO2 Sensor 67 67 70 Respiratory Rate Respiratory Effort / Characteristics Respiratory Depth Respiratory Pattern Blood Pressure Blood Pressure [Left Arm] Blood Pressure Mean Blood Pressure Mean [Left Arm] Pulse Oximetry 94 93 93 Oxygen Delivery Method Room Air Room Air Room Air Oxygen Flow Rate Sepsis Recent Fever Within 48 Hours Sepsis New/Unexplained Change in Mental Status Sepsis Action Taken by Nursing End-Tidal CO2 09/07/24 11:00 09/07/24 11:12 09/07/24 11:14 Temperature Temperature Source Pulse Rate 73 50 L Pulse Rate [Apical] Pulse Rate from SpO2 Sensor 54 L Respiratory Rate 18 15 2 L Respiratory Effort / Characteristics Respiratory Depth Shallow Respiratory Pattern Blood Pressure 111/66 128/62 Blood Pressure [Left Arm] Blood Pressure Mean 96 84 Blood Pressure Mean [Left Arm] Pulse Oximetry 94 98 62 L Oxygen Delivery Method Room Air Nasal Cannula Ambu-Bag Oxygen Flow Rate 4 Sepsis Recent Fever Within 48 Hours Sepsis New/Unexplained Change in Mental Status Sepsis Action Taken by Nursing End-Tidal CO2 48 09/07/24 11:15 09/07/24 11:15 09/07/24 11:17 Temperature Temperature Source Pulse Rate 62 Pulse Rate [Apical] Pulse Rate from SpO2 Sensor 54 L Respiratory Rate 15 16 18 Respiratory Effort / Characteristics Spontaneous Respiratory Depth Shallow Shallow Respiratory Pattern Blood Pressure 124/78 Blood Pressure [Left Arm] Blood Pressure Mean 93 Blood Pressure Mean [Left Arm] Pulse Oximetry 97 98 97 Oxygen Delivery Method Nasal Cannula Nasal Cannula Nasal Cannula Oxygen Flow Rate 4 5 5 Sepsis Recent Fever Within 48 Hours Sepsis New/Unexplained Change in Mental Status Sepsis Action Taken by Nursing End-Tidal CO2 47 09/07/24 11:18 09/07/24 11:20 09/07/24 11:21 Temperature Temperature Source Pulse Rate 80 52 L Pulse Rate [Apical] Pulse Rate from SpO2 Sensor 76 Respiratory Rate 16 17 Respiratory Effort / Characteristics Non-Labored Spontaneous Respiratory Depth Normal Respiratory Pattern Blood Pressure Blood Pressure [Left Arm] Blood Pressure Mean Blood Pressure Mean [Left Arm] Pulse Oximetry 99 98 Oxygen Delivery Method Nasal Cannula Nasal Cannula Oxygen Flow Rate 5 2 Sepsis Recent Fever Within 48 Hours Sepsis New/Unexplained Change in Mental Status Sepsis Action Taken by Nursing End-Tidal CO2 37 09/07/24 11:21 09/07/24 11:22 09/07/24 11:24 Temperature Temperature Source Pulse Rate 64 Pulse Rate [Apical] Pulse Rate from SpO2 Sensor 69 Respiratory Rate 19 18 16 Respiratory Effort / Characteristics Non-Labored Spontaneous Non-Labored Spontaneous Respiratory Depth Normal Normal Respiratory Pattern Blood Pressure 114/69 Blood Pressure [Left Arm] Blood Pressure Mean 84 Blood Pressure Mean [Left Arm] Pulse Oximetry 99 98 97 Oxygen Delivery Method Nasal Cannula Nasal Cannula Nasal Cannula Oxygen Flow Rate 5 2 2 Sepsis Recent Fever Within 48 Hours Sepsis New/Unexplained Change in Mental Status Sepsis Action Taken by Nursing End-Tidal CO2 40 09/07/24 11:27 09/07/24 11:29 09/07/24 11:30 Temperature Temperature Source Pulse Rate 72 64 Pulse Rate [Apical] Pulse Rate from SpO2 Sensor Respiratory Rate 17 16 18 Respiratory Effort / Characteristics Non-Labored Spontaneous Respiratory Depth Normal Respiratory Pattern Blood Pressure 109/67 Blood Pressure [Left Arm] Blood Pressure Mean 79 Blood Pressure Mean [Left Arm] Pulse Oximetry 95 97 95 Oxygen Delivery Method Room Air Room Air Room Air Oxygen Flow Rate Sepsis Recent Fever Within 48 Hours Sepsis New/Unexplained Change in Mental Status Sepsis Action Taken by Nursing End-Tidal CO2 09/07/24 11:45 09/07/24 11:45 09/07/24 11:57 Temperature Temperature Source Pulse Rate 67 72 67 Pulse Rate [Apical] Pulse Rate from SpO2 Sensor 68 68 Respiratory Rate 13 17 15 Respiratory Effort / Characteristics Respiratory Depth Respiratory Pattern Blood Pressure 98/60 L 93/56 L Blood Pressure [Left Arm] Blood Pressure Mean 72 66 Blood Pressure Mean [Left Arm] Pulse Oximetry 95 94 94 Oxygen Delivery Method Room Air Room Air Room Air Oxygen Flow Rate Sepsis Recent Fever Within 48 Hours Sepsis New/Unexplained Change in Mental Status Sepsis Action Taken by Nursing End-Tidal CO2 09/07/24 12:00 09/07/24 12:06 09/07/24 12:15 Temperature Temperature Source Pulse Rate 72 70 68 Pulse Rate [Apical] Pulse Rate from SpO2 Sensor 71 69 Respiratory Rate 15 15 20 Respiratory Effort / Characteristics Respiratory Depth Respiratory Pattern Blood Pressure 92/58 L 104/55 L Blood Pressure [Left Arm] Blood Pressure Mean 69 75 Blood Pressure Mean [Left Arm] Pulse Oximetry 94 95 95 Oxygen Delivery Method Room Air Room Air Room Air Oxygen Flow Rate Sepsis Recent Fever Within 48 Hours Sepsis New/Unexplained Change in Mental Status Sepsis Action Taken by Nursing End-Tidal CO2 Laboratory Data 09/07/24 10:30 09/07/24 10:30 Lab Results 09/07/24 Range/Units 10:30 WBC 7.77 (4.8-10.8) K/ul RBC 3.79 L (4.20-5.40) M/uL Hgb 13.1 (12.0-16.0) g/dl Hct 36.3 L (37.0-47.0) % MCV 95.8 (80.0-100.0) fL MCH 34.6 H (25.0-34.0) pg MCHC 36.1 H (32.0-36.0) g/dL RDW Std Deviation 41.3 (36.4-46.3) fL RDW Coeff of [place] 11.9 (11.5-14.5) % Plt Count 199 (130-400) K/uL MPV 9.6 (9.4-12.4) fL Immature Gran % (Auto) 0.1 % Neut % (Auto) 76.9 % Lymph % (Auto) 16.1 % [place] % (Auto) 6.2 % Eos % (Auto) 0.4 % Baso % (Auto) 0.3 % Neut # (Auto) 5.98 (1.40-6.50) K/uL Lymph # (Auto) 1.25 (1.20-3.40) K/uL [place] # (Auto) 0.48 (0.11-0.59) K/uL Eos # (Auto) 0.03 (0.00-0.50) K/uL Baso # (Auto) 0.02 (0.00-0.20) K/uL Immature Gran # (Auto) 0.01 (0.01-0.20) K/uL Sodium 131 L (136-145) mmol/L Potassium 3.9 (3.5-5.1) mmol/L Chloride 97 L (98-107) mmol/L Carbon Dioxide 26 (21-32) mmol/L Anion Gap 8 (3-11) BUN 4 L (6-23) mg/dl Creatinine 0.69 (0.6-1.2) mg/dl Est Cr Clr Drug Dosing 71.9 ml/min eGFR 92.15 BUN/Creatinine Ratio 5.8 L (10-20) Glucose 93 (70-99(Fasting)) mg/dl Osmolality 300 (280-300) mOsm/kg Calcium 8.5 L (8.6-10.3) mg/dl Total Bilirubin 0.6 (0.2-1.0) mg/dl AST 23 (13-39) U/L ALT 20 (7-52) U/L Alkaline Phosphatase 50 (34-104) U/L Troponin I High Sens 4.9 (0-14) pg/ml Total Protein 7.1 (6.0-8.3) gm/dl Albumin 4.3 (3.4-5.0) gm/dl Globulin 2.8 (2.5-4.0) gm/dl Albumin/Globulin Ratio 1.5 (0.9-2) Lipase 20 (11-82) U/L 25-OH Vitamin D Total 18.5 L (30-100) ng/ml TSH 1.959 (0.300-4.500) uIu/ml Lyme Disease Screen Negative (Negative) Administered Medications Sodium Chloride (Nss) 1,000 mls @ 80 mls/hr IV .[id number] ONE Stop: 09/08/24 01:13 Last Admin: 09/07/24 13:26 Dose: 80 mls/hr Documented By: KRISTIAN Morphine Sulfate (Morphine Sulfate 2 Mg/Ml Carp) 2 mg IV Q3H PRN PRN Reason: Mod-Sev Pain (Scale 4-10) Stop: 09/21/24 14:21 Last Admin: 09/07/24 15:04 Dose: 2 mg Documented By: SOPHIE Discontinued Medications Bupivacaine HCl/Epinephrine Bitart (Bupivacaine/Epinephrine 0.5% Mpf 1:200,000 30 Ml Vial) Confirm Administered Dose 30 ml .ROUTE .STK-MED ONE Stop: 09/07/24 16:01 Last Admin: 09/07/24 21:01 Dose: Not Given Documented By: JOSLYN Cefazolin Sodium (Cefazolin 2,000 Mg/15 Ml Iv Push) Confirm Administered Dose 2,000 mg IV .STK-MED ONE Stop: 09/07/24 18:00 Last Admin: 09/07/24 18:24 Dose: 2,000 mg Documented By: MERARI Gabapentin (Gabapentin 400 Mg Cap) 800 mg PO NOW ONE Stop: 09/07/24 16:51 Last Admin: 09/07/24 20:54 Dose: Not Given Documented By: JOSLYN Thiamine HCl 200 mg/ Sodium (Chloride) 52 mls @ 210 mls/hr IV NOW STA Stop: 09/07/24 11:33 Last Infusion: 09/07/24 12:33 Dose: Infused Documented By: Admin: 09/07/24 12:18 Dose: 210 mls/hr Documented By: AMRANI Ketamine HCl (Ketamine Hcl 10mg/Ml Syr) 38 mg IV TODAY@1100 [facility] Stop: 09/07/24 12:00 Last Admin: 09/07/24 11:22 Dose: 38 mg Documented By: KATY Morphine Sulfate (Morphine Sulfate 10 Mg/Ml Carp/Vial) 6 mg IM NOW STA Stop: 09/07/24 09:43 Last Admin: 09/07/24 09:47 Dose: 6 mg Documented By: ARMANI Ondansetron HCl (Ondansetron 4 Mg Od Tab) 4 mg PO NOW STA Stop: 09/07/24 09:43 Last Admin: 09/07/24 09:47 Dose: 4 mg Documented By: ARMANI Propofol (Propofol Iv Emulsion 10 Mg/Ml 20 Ml Vial) 38 mg IV TODAY@1100 [facility] Stop: 09/07/24 12:00 Last Admin: 09/07/24 11:07 Dose: 38 mg Documented By: KATY Co-signed By: KRISTINA Propofol (Propofol Iv Emulsion 10 Mg/Ml 20 Ml Vial) 40 mg IV TODAY@1113 [facility] Stop: 09/07/24 12:00 Last Admin: 09/07/24 11:24 Dose: 40 mg Documented By: KATY Co-signed By: KRISTINA Imaging Data Radiologist's Impression: Ankle X-Ray 09/07/24 09:42 Clinical History: Injury 3 views of the left ankle are submitted for review. Findings: There is an acute displaced transverse fracture of the medial malleolus and there is a displaced and angulated fracture of the distal fibular metaphysis, with dislocation of the ankle joint. There are small dorsal and plantar calcaneal spurs. No significant arthritic changes are noted. No other osseous abnormality is identified. There are no radiopaque foreign bodies. Impression: Displaced fractures of the medial malleolus and distal fibular metaphysis, with dislocation of the ankle joint ACT 112: Positive. There are findings on this exam that require communication between the performing entity and the patient following Patient Test Result [place] Act ([place] 112) [place]. Electronically signed by Mario Olson 09-07-2024 10:31 AM Foot X-Ray 09/07/24 09:42 Clinical History: Fall 3 views of the left foot are submitted for review. Findings: There are nondisplaced fractures of the bases of the second, third, and fourth metatarsals. There is osteoarthritis of the great toe metatarsophalangeal joint. There are small dorsal and plantar calcaneal spurs. No other osseous abnormality is identified. There are no radiopaque foreign bodies. Impression: Nondisplaced fractures of the bases of the second, third, and fourth metatarsals ACT 112: Positive. There are findings on this exam that require communication between the performing entity and the patient following Patient Test Result [place] 112[place]. Electronically signed by Mario Olson 09-07-2024 10:28 AM Tibia/Fibula X-Ray 09/07/24 09:42 Clinical History: Fall 2 views of the left lower leg are submitted for review. Findings: There is an acute displaced transverse fracture of the medial malleolus and there is a displaced and angulated fracture of the distal fibular metaphysis, with dislocation of the ankle joint. There is joint space narrowing in the medial compartment of the left knee as well as osteophyte formation. No other osseous abnormality is identified. There are no radiopaque foreign bodies. Impression: 1. Displaced fractures of the medial malleolus and distal fibular metaphysis, with dislocation of the ankle joint 2. Mild to moderate severity left knee osteoarthritis ACT 112: Positive. There are findings on this exam that require communication between the performing entity and the patient following Patient Test Result [place] 112[place]. Electronically signed by Mario Olson 09-07-2024 10:32 AM Ankle X-Ray 09/07/24 11:19 Clinical History: Postreduction 2 views of the left ankle are submitted for review. Comparison is made to the prior examination obtained earlier today Findings: There has been interval partial reduction of the previously seen fractures of the medial malleolus and distal fibular metaphysis. Mild displacement remains. There is new cast material, which obscures fine bony detail. No significant arthritic changes are noted. No other osseous abnormality is identified. There are no radiopaque foreign bodies. Impression: Partial reduction of the previously seen fractures of the medial malleolus and distal fibular metaphysis ACT 112: Positive. There are findings on this exam that require communication between the performing entity and the patient following Patient Test Result [place] ([place] 112) [place]. Electronically signed by Mario Olson 09-07-2024 12:10 PM Chest X-Ray 09/07/24 11:19 Technique: A frontal view of the chest was obtained Comparison is made to the prior examination dated 11/08/2019 Findings: There are no confluent pulmonary infiltrates. The heart size is within normal limits. No pleural effusion or pneumothorax is seen. There is no definite pulmonary nodule. No fracture is noted. No foreign body is seen Impression: No active disease Electronically signed by Mario Olson 09-07-2024 12:10 PM Discharge Plan Visit Data Chief Complaint: Fall Stated Complaint: FALL, LEFT ANKLE PAIN ED Provider: Eliot cOonnor Discharge Problem: Bimalleolar fracture of left ankle, Fall, Closed dislocation of left ankle, Fracture of metatarsal of left foot, closed, Heart block AV second degree Patient Disposition: Admitted As Inpatient Condition: Good Discharge Instructions Interventions: ED Discharge Assessment Last Done: 09/07/24 14:00
[2024-09-07 11:44] LABS: Basophils # (auto) 0.02 K/uL (0.00-0.20); Basophils % (auto) 0.3 %; Eosinophils # (auto) 0.03 K/uL (0.00-0.50); Eosinophils % (auto) 0.4 %; Hematocrit (blood only) 36.3 % (37.0-47.0); Hemoglobin 13.1 g/dl (12.0-16.0); Immature Granulocytes # (auto) 0.01 K/uL (0.01-0.20); Immature Granulocytes % (auto) 0.1 %; Lymphocytes # (auto) 1.25 K/uL (1.20-3.40); Lymphocytes % (auto) 16.1 %; Mean Corpuscular Hemoglobin 34.6 pg (25.0-34.0); Mean Corpuscular Hgb Conc 36.1 g/dL (32.0-36.0); Mean Corpuscular Volume 95.8 fL (80.0-100.0); Mean Platelet Volume 9.6 fL (9.4-12.4); Monocytes # (auto) 0.48 K/uL (0.11-0.59); Monocytes % (auto) 6.2 %; Neutrophils # (auto) 5.98 K/uL (1.40-6.50); Neutrophils % (auto) 76.9 %; Platelet Count 199 K/uL (130-400); RDW Coefficient of Variation 11.9 % (11.5-14.5); RDW Standard Deviation 41.3 fL (36.4-46.3); Red Blood Count 3.79 M/uL (4.20-5.40); White Blood Count 7.77 K/ul (4.8-10.8)
[2024-09-07 12:01] LABS: Albumin Globulin Ratio 1.5 (0.9-2); Albumin Level 4.3 gm/dl (3.4-5.0); BUN Creatinine Ratio 5.8 (10-20); Bilirubin,Total 0.6 mg/dl (0.2-1.0); Calcium 8.5 mg/dl (8.6-10.3); Creatinine Clr Calc Pharmacy 71.9 ml/min; Globulin 2.8 gm/dl (2.5-4.0); Potassium 3.9 mmol/L (3.5-5.1); Total Protein 7.1 gm/dl (6.0-8.3)
[2024-09-07 12:07] LABS: Troponin I High Sensitivity 4.9 pg/ml (0-14)
--- NOTE | 2024-09-07 12:10 | XRay Report ---
Clinical History: Postreduction 2 views of the left ankle are submitted for review. Comparison is made to the prior examination obtained earlier today Findings: There has been interval partial reduction of the previously seen fractures of the medial malleolus and distal fibular metaphysis. Mild displacement remains. There is new cast material, which obscures fine bony detail. No significant arthritic changes are noted. No other osseous abnormality is identified. There are no radiopaque foreign bodies. Impression: Partial reduction of the previously seen fractures of the medial malleolus and distal fibular metaphysis ACT 112: Positive. There are findings on this exam that require communication between the performing entity and the patient following Patient Test Result [place] Act ([place] 112) [place]. Electronically signed by Mario Olson 09-07-2024 12:10 PM
--- NOTE | 2024-09-07 12:11 | XRay Report ---
Technique: A frontal view of the chest was obtained Comparison is made to the prior examination dated 11/08/2019 Findings: There are no confluent pulmonary infiltrates. The heart size is within normal limits. No pleural effusion or pneumothorax is seen. There is no definite pulmonary nodule. No fracture is noted. No foreign body is seen Impression: No active disease Electronically signed by Mario Olson 09-07-2024 12:10 PM
[2024-09-07] MEDS: THIAMINE HCL 200 MG in SODIUM CHLORIDE 0.9% 50 ML IV STA (12:18)
--- NOTE | 2024-09-07 12:33 | History & Physical Report ---
Date of Service September 07, 2024 Assessment & Plan (1) Heart block AV second degree: (2) Closed dislocation of left ankle: (3) Trimalleolar fracture of left ankle: (4) Hypokalemia: Plan Mechanical Fall Left Trimalleolar Fracture Hx of alcohol abuse - Admit to med surg with tele - Imaging reviewed - Ortho consulted, possible OR today, Continue NPO status pending EKG is clear and can go today. - EKG being repeated with concerns in the ER for new 2nd degree AV block, lymes serology is pending - S/p dose of propofol, ketamine, and zofran in the ER to reduce trimalleolar fracture - CXR is reviewed and clear - Bowel regimen and analgesia ordered - Will check vit d Hx of alcohol abuse -urine osm, urine sodium, serum osm - Drinks 3 x 16 oz cans of beer daily - WASS ordered, lorazepam prn per protocol - Cessation encouraged today and will need to be continued throughtout hospital stay. - EtOh level pending HLD - Simvastatin 40 mg HS LE edema - Taking lasix 40 mg daily for such, pt denies any previous cardiac hx or lymphedema. She does have 1 + pitting in the right leg, the left is in imobilizer. Will hold lasix for now. Monitor closely for fluid overload. Hypothyroidism - Check TSH and Free T4 - Will continue levothyroxine pending med rec Mood disorder - Sertraline 50 mg daily DVT ppx: teds, scds Lines: PIV x 2 CODE: FULL Dispo: From home, likely to remain in the hospital x 1-2 days pending OR and rehab potential. History of Present Illness Chief Complaint: Fall, left ankle pain Primary Care Provider: Jenna Adams This is a 74-year-old female with PMHx of hypothyroidism, mood disorder, history of alcohol abuse who presents to the hospital after sustaining an acute fall injuring the left ankle. She was attempting to take the trash out and mis stepped on a step and fell down with twisting of her ankle. She denies injury to her head or other part of the body. She typically walks without assistive devices. Here the patient is found to have a trimalleolar fracture as well as three metatarsal fractures in the left foot. The trimalleolar fracture was mechanically reduced in the ER to the best of ability. Ortho has been consulted this morning. She has been n.p.o. since yesterday at dinner time. Ortho is considering taking the patient to the OR today if she is medically cleared. Patient was found to have a possible second-degree AV block on her EKG in the ER which appears to be new. She has an old right bundle branch block. Repeating an EKG now to further evaluate. Lyme disease screening is pending. CXR is negative. Daughter is present at bedside and supports the history. Pt did not take any of her home medications this morning, meds are confirmed in EMR. Pt Denies any tobacco use or drug use. Pt admits to alcohol use with beer (juni light) 16 oz 3per day, last drink was yesterday. She denies withdrawal symptoms or ever having seizures from withdraw. Allergies Allergy/AdvReac Type Severity Reaction Status Date / Time No Known Allergies Allergy Unverified 09/07/24 11:35 Home Medications Medication Instructions Recorded Confirmed Type furosemide 40 mg tablet 40 mg PO QAM 09/07/24 09/07/24 History levothyroxine 137 mcg tablet 137 mcg PO DAILY 09/07/24 09/07/24 History sertraline 50 mg tablet 50 mg PO DAILY 09/07/24 09/07/24 History simvastatin 40 mg tablet 40 mg PO HS 09/07/24 09/07/24 History Past Med/Surg History Problem List Trimalleolar fracture of left ankle Heart block AV second degree (Acute) Fracture of metatarsal of left foot, closed (Acute) Closed dislocation of left ankle (Acute) Fall (Acute) Bimalleolar fracture of left ankle (Acute) Fall Alcoholic intoxication (Acute) Syncope (Acute) Acute hyponatremia (Acute) Hypokalemia (Acute) Medical History Lymphedema Depression Surgical History History of cholecystectomy Family History Father Diabetes Social History Smoking Status: Never smoker Hx Alcohol Use: Yes Alcohol type: beer Hx Substance Use: No Preferred Language: Sri Lankan Communication Ability: Effective [id number] Developer Required: No Beliefs That Will Affect Care: None Current Living Situation: Family Current Living Situation Comment: home with daughterMerle Feels Safe at Home: Yes Assistive Devices: None Review of Systems Review of Systems: Constitutional: No fever, sweats or chills Eyes: No diplopia, no worsening or blurred vision ENT: normal hearing, no trouble swallowing Respiratory: No cough, sputum, dyspnea at rest or on exertion Cardiovascular: No chest pain, tightness or palpitations Abdomen: No pain, nausea, vomiting, diarrhea or constipation Musculoskeletal: No joint pain, calf pain, + feet swelling and is on lasix daily Neurologic: No weakness, numbness/tingling, or balance problems Psychiatric: No anxiety or depression Skin: No rash or itch Physical Exam Physical Exam: General: awake, alert, no apparent distress Head: Normocephalic, atraumatic ENT: PERRL, EOMI, no pharyngeal exudate, mucous membranes moist Chest: Clear to auscultation, on room air, no adventitious breath sounds Cardiac: Regular rate and rhythm, no murmur, no JVD, normal peripheral pulses, good capillary refill Abdominal: NABS x 4 quadrants, soft, nondistended, nontender to palpation, no rebound or guarding Extremities: RLE 1 + edema, Left in immobilizer, no peripheral erythema, calfs nontender to palpation Psych: Normal mood and affect Neuro: AAO x 3, no gross motor deficits, speech is clear, no peripheral sensory deficits Results & Data Results & Data Vital Signs (Past 12 Hours) Vital Signs Temp Pulse Pulse Resp BP BP Pulse Ox 09/07/24 12:15 68 20 104/55 L 95 09/07/24 12:06 70 15 95 09/07/24 12:00 72 15 92/58 L 94 09/07/24 11:57 67 15 94 09/07/24 11:45 72 17 93/56 L 94 09/07/24 11:45 67 13 98/60 L 95 09/07/24 11:30 64 18 109/67 95 09/07/24 11:29 72 16 97 09/07/24 11:27 17 95 09/07/24 11:24 16 97 09/07/24 11:22 18 98 09/07/24 11:21 64 19 114/69 99 09/07/24 11:21 52 L 09/07/24 11:20 17 98 09/07/24 11:18 80 16 99 09/07/24 11:17 18 97 09/07/24 11:15 16 98 09/07/24 11:15 62 15 124/78 97 09/07/24 11:14 2 L 62 L 09/07/24 11:12 50 L 15 128/62 98 09/07/24 11:00 73 18 111/66 94 09/07/24 10:54 72 93 09/07/24 10:42 67 93 09/07/24 10:39 67 94 09/07/24 10:35 67 09/07/24 10:30 73 18 131/77 92 09/07/24 09:25 36.6 C 70 20 130/69 96 O2 Del Method O2 Flow Rate 09/07/24 12:15 Room Air 09/07/24 12:06 Room Air 09/07/24 12:00 Room Air 09/07/24 11:57 Room Air 09/07/24 11:45 Room Air 09/07/24 11:45 Room Air 09/07/24 11:30 Room Air 09/07/24 11:29 Room Air 09/07/24 11:27 Room Air 09/07/24 11:24 Nasal Cannula 2 09/07/24 11:22 Nasal Cannula 2 09/07/24 11:21 Nasal Cannula 5 09/07/24 11:21 09/07/24 11:20 Nasal Cannula 2 09/07/24 11:18 Nasal Cannula 5 09/07/24 11:17 Nasal Cannula 5 09/07/24 11:15 Nasal Cannula 5 09/07/24 11:15 Nasal Cannula 4 09/07/24 11:14 Ambu-Bag 09/07/24 11:12 Nasal Cannula 4 09/07/24 11:00 Room Air 09/07/24 10:54 Room Air 09/07/24 10:42 Room Air 09/07/24 10:39 Room Air 09/07/24 10:35 09/07/24 10:30 Room Air 09/07/24 09:25 Room Air Laboratory Results 09/07/24 10:30 WBC 7.77 RBC 3.79 L Hgb 13.1 Hct 36.3 L MCV 95.8 MCH 34.6 H MCHC 36.1 H RDW Std Deviation 41.3 RDW Coeff of [place] 11.9 Plt Count 199 MPV 9.6 Immature Gran % (Auto) 0.1 Neut % (Auto) 76.9 Lymph % (Auto) 16.1 [place] % (Auto) 6.2 Eos % (Auto) 0.4 Baso % (Auto) 0.3 Neut # (Auto) 5.98 Lymph # (Auto) 1.25 [place] # (Auto) 0.48 Eos # (Auto) 0.03 Baso # (Auto) 0.02 Immature Gran # (Auto) 0.01 Sodium 131 L Potassium 3.9 Chloride 97 L Carbon Dioxide 26 Anion Gap 8 BUN 4 L Creatinine 0.69 Est Cr Clr Drug Dosing 71.9 eGFR 92.15 BUN/Creatinine Ratio 5.8 L Glucose 93 Calcium 8.5 L Total Bilirubin 0.6 AST 23 ALT 20 Alkaline Phosphatase 50 Troponin I High Sens 4.9 Total Protein 7.1 Albumin 4.3 Globulin 2.8 Albumin/Globulin Ratio 1.5 Lipase 20 Diagnostic Findings Ankle X-Ray 09/07/24 09:42 Clinical History: Injury 3 views of the left ankle are submitted for review. Findings: There is an acute displaced transverse fracture of the medial malleolus and there is a displaced and angulated fracture of the distal fibular metaphysis, with dislocation of the ankle joint. There are small dorsal and plantar calcaneal spurs. No significant arthritic changes are noted. No other osseous abnormality is identified. There are no radiopaque foreign bodies. Impression: Displaced fractures of the medial malleolus and distal fibular metaphysis, with dislocation of the ankle joint ACT 112: Positive. There are findings on this exam that require communication between the performing entity and the patient following Patient Test Result [place] Act ([place] 112) [place]. Electronically signed by Mario Olson 09-07-2024 10:31 AM Foot X-Ray 09/07/24 09:42 Clinical History: Fall 3 views of the left foot are submitted for review. Findings: There are nondisplaced fractures of the bases of the second, third, and fourth metatarsals. There is osteoarthritis of the great toe metatarsophalangeal joint. There are small dorsal and plantar calcaneal spurs. No other osseous abnormality is identified. There are no radiopaque foreign bodies. Impression: Nondisplaced fractures of the bases of the second, third, and fourth metatarsals ACT 112: Positive. There are findings on this exam that require communication between the performing entity and the patient following Patient Test Result [place] 112[place]. Electronically signed by Mario Olson 09-07-2024 10:28 AM Tibia/Fibula X-Ray 09/07/24 09:42 Clinical History: Fall 2 views of the left lower leg are submitted for review. Findings: There is an acute displaced transverse fracture of the medial malleolus and there is a displaced and angulated fracture of the distal fibular metaphysis, with dislocation of the ankle joint. There is joint space narrowing in the medial compartment of the left knee as well as osteophyte formation. No other osseous abnormality is identified. There are no radiopaque foreign bodies. Impression: 1. Displaced fractures of the medial malleolus and distal fibular metaphysis, with dislocation of the ankle joint 2. Mild to moderate severity left knee osteoarthritis ACT 112: Positive. There are findings on this exam that require communication between the performing entity and the patient following Patient Test Result [place] ([place] 112[place]. Electronically signed by Mario Olson 09-07-2024 10:32 AM Ankle X-Ray 09/07/24 11:19 Clinical History: Postreduction 2 views of the left ankle are submitted for review. Comparison is made to the prior examination obtained earlier today Findings: There has been interval partial reduction of the previously seen fractures of the medial malleolus and distal fibular metaphysis. Mild displacement remains. There is new cast material, which obscures fine bony detail. No significant arthritic changes are noted. No other osseous abnormality is identified. There are no radiopaque foreign bodies. Impression: Partial reduction of the previously seen fractures of the medial malleolus and distal fibular metaphysis ACT 112: Positive. There are findings on this exam that require communication between the performing entity and the patient following Patient Test Result [place] Act ([place] 112) [place]. Electronically signed by Mario Olson 09-07-2024 12:10 PM Chest X-Ray 09/07/24 11:19 Technique: A frontal view of the chest was obtained Comparison is made to the prior examination dated 11/08/2019 Findings: There are no confluent pulmonary infiltrates. The heart size is within normal limits. No pleural effusion or pneumothorax is seen. There is no definite pulmonary nodule. No fracture is noted. No foreign body is seen Impression: No active disease Electronically signed by Mario Olson 09-07-2024 12:10 PM ECG Indication: other (Preop clearance) Rate (beats per minute): 73 Rhythm: normal sinus Findings: + RBBB Code Status & VTE Plan Code Status Full code Supervising Physician Co-Signing Physician Notes Patient is a 74-year-old female with multiple comorbidities presents with history of left ankle pain after sustaining a mechanical fall. She denies any head trauma or loss of consciousness. Admits to drink alcohol on daily basis, last alcohol drink yesterday per patient. Denies any chest pain, dyspnea, nausea, vomiting, abdominal pain. Please review HPI for complete details of presentation. I personally reviewed blood work and imaging studies. Sodium 131, chloride 97, calcium 8.5, vitamin D 18.5. TSH 1.9. Alcohol level 59.4. Imaging studies suggestive displaced fracture of medial malleolus and distal fibular meta physis and dislocation of the ankle joint. Also showed findings suggestive of severe left knee osteoarthritis. EKG showed normal sinus rhythm, right bundle branch block, QTc 511. Physical Exam: Vitals signs as noted above General Appearance:Obese, no apparent distress Head: normocephalic, Atraumatic Eyes: normal inspection, EOMI Neck: supple, Trachea midline Respiratory/Chest: Normal breath sounds, CTA, No accessory muscle use Cardiovascular: S1, S2, No murmur Abdomen/GI:Soft, Non tender, Bowel sounds present Extremities/Musculoskeletal:normal inspection, 1+ edema, Left Ankle in splint Neurologic/Psych:AAOX3, grossly no focal neurological deficits Skin: normal color, warm Left ankle fracture Mechanical fall Alcohol use disorder Vitamin D deficiency Hyponatremia likely due to alcohol use Pain control, bowel regimen to prevent constipation Appreciate orthopedics help PT OT when appropriate Monitor for alcohol withdrawal Started on thiamine, folic acid, gabapentin Vice President Of Instruction to quit drinking Fall precautions Monitor sodium levels I personally interviewed and examined the patient at bedside. I have reviewed the advanced practitioner's documentation on the date of service referred in no te and agree with plan. Patient's care is coordinated with Charlene Al PA-C. Please refer to the documentation above for details of patient's presentation and for discussion of other issues. I spent a total [id number] coordinating, documenting, and providing care for this patient excluding time spent in the performance of separately billed services or time spent by another provider/QHP.
[2024-09-07] MEDS ORDERED: LORazepam 2 MG/1 ML VIAL IV PRN (13:08)
[2024-09-07] MEDS: SODIUM CHLORIDE 0.9% 1,000 ML IV ONE (13:26)
[2024-09-07 13:43] LABS: Thyroid Stimulating Hormone 1.959 uIu/ml (0.300-4.500)
--- NOTE | 2024-09-07 13:52 | Orthopedic Consultation ---
Date of Service September 07, 2024 Assessment & Plan (1) Fracture of metatarsal of left foot, closed: (2) Bimalleolar fracture of left ankle: She was educated on this injury in the ER. She did have a closed reduction performed and ankle is splinted already. Alignment is improved. I did recommend surgery, ORIF, for this ankle fracture. She is npo for now but does have an abnormal EKG. Dr Geiger discussed with Hospitalist and will proceed with surgery today. Being admitted to the hospitalist service. Ice, elevate LLE. NWB LLE. History of Present Illness Reason for Consultation: . Requesting Physician: . .74 year old patient admitted with a left ankle fracture dislocation. She slipped and injured this while taking some trash out early this morning. She did have a closed reduction and splinting performed in the ER. Denies any other injuries. Allergies Allergy/AdvReac Type Severity Reaction Status Date / Time No Known Allergies Allergy Unverified 09/07/24 11:35 Home Medications Medication Instructions Recorded Confirmed Type furosemide 40 mg tablet 40 mg PO QAM 09/07/24 09/07/24 History levothyroxine 137 mcg tablet 137 mcg PO DAILY 09/07/24 09/07/24 History sertraline 50 mg tablet 50 mg PO DAILY 09/07/24 09/07/24 History simvastatin 40 mg tablet 40 mg PO HS 09/07/24 09/07/24 History Past Med/Surg History Problem List Trimalleolar fracture of left ankle Heart block AV second degree (Acute) Fracture of metatarsal of left foot, closed (Acute) Closed dislocation of left ankle (Acute) Fall (Acute) Bimalleolar fracture of left ankle (Acute) Fall Alcoholic intoxication (Acute) Syncope (Acute) Acute hyponatremia (Acute) Hypokalemia (Acute) Medical History Lymphedema Depression Surgical History History of cholecystectomy Family History Father Diabetes Social History Smoking Status: Never smoker Hx Alcohol Use: Yes Alcohol type: beer and hard liquor Hx Substance Use: No Preferred Language: Maori Communication Ability: Effective Finishing Range Supervisor Required: No Beliefs That Will Affect Care: None Current Living Situation: Family Feels Safe at Home: Yes Assistive Devices: None Review of Systems All systems reviewed & are unremarkable except as noted in HPI & below. Physical Exam alert, NAD Left leg: splint in place. I did not remove this. She moves her toes gently and has brisk refill. Sensation intact to touch. . Results & Data Results & Data Laboratory Results . Diagnostic Findings .xrays of the left ankle shows a bimalleolar ankle fx/dislocation, improved alignment but still displaced on the post reduction xray. She also has 2nd, 3rd, 4th metatarsal fractures PG Care Time/CCT Total # of Minutes Spent Total Time Spent with Patient: Total time spent is greater than 50% in coordination of care (as documented) at patient's floor/unit and/or counseling patient: Coding Level of Care Code 60229 IN/OBS CONSULT LVL 5,80M Diagnoses Fracture of metatarsal of left foot, closed S92.302A Bimalleolar fracture of left ankle S82.842A
[2024-09-07] MEDS ORDERED: POLYETHYLENE (MIRALAX) 17 GM PACK PO PRN (14:22)
[2024-09-07] MEDS ORDERED: ACETAMINOPHEN 325 MG TAB PO PRN (14:22)
[2024-09-07] MEDS ORDERED: PROMETHAZINE 6.25 MG/50.25 ML BAG IV PRN (14:22)
[2024-09-07] MEDS ORDERED: oxyCODONE/ACETAMINOPHEN 5mg/325mg TAB PO PRN (14:22)
[2024-09-07] MEDS: MoRPHine SULFATE 2 MG/ML CARP IV PRN (15:04)
[2024-09-07] MEDS ORDERED: bisacodyL 10 MG SUPP PR PRN ×2 (16:45→20:53)
[2024-09-07] MEDS ORDERED: DOCUSATE SODIUM 100 MG CAP PO PRN (16:45)
[2024-09-07] MEDS ORDERED: GABAPENTIN 800MG ALCOHOL WITHDRAWAL LOAD PO STA (16:50)
[2024-09-07] MEDS ORDERED: fentaNYL citrate PF 100 MCG/2 ML VIAL ONE (17:11)
[2024-09-07] MEDS ORDERED: MIDAZOLAM HCL 1 MG/ML 2ML VIAL ONE (17:11)
[2024-09-07] MEDS ORDERED: LIDOCAINE 2% 2 ML VIAL/AMP(20MG/ML) INFIL ONE (17:12)
[2024-09-07] MEDS ORDERED: DEXAMETHASONE SOD INJ 4 MG/ML VIAL ONE (17:12)
[2024-09-07] MEDS ORDERED: ONDANSETRON INJ 2 MG/ML 2 ML VIAL ONE (17:12)
[2024-09-07] MEDS ORDERED: ROCURONIUM BROMIDE 10 MG/ML 5 ML VIAL IV ONE (17:12)
[2024-09-07] MEDS ORDERED: PROPOFOL IV EMULSION 10 MG/ML 20 ML VIAL IV ONE ×2 (17:12→17:16)
--- NOTE | 2024-09-07 18:06 | Anesthesiology Consultation ---
Date of Service September 07, 2024 Assessment & Plan Chart Review Chart Review: Acceptable Risk for Surgery Consults Requested none History Surgery Operation Date: 09/07/24 17:00 Proposed Procedures p Open Reduction Internal Fixation Ankle - Shawn Geiger MD Height/Weight Height: 5 ft 3 in Weight: 76 kg Allergies Allergy/AdvReac Type Severity Reaction Status Date / Time No Known Allergies Allergy Unverified 09/07/24 11:35 Medications Home Medications Medication Instructions Recorded Confirmed Last Taken furosemide 40 mg tablet 40 mg PO QAM 09/07/24 09/07/24 Unknown levothyroxine 137 mcg tablet 137 mcg PO DAILY 09/07/24 09/07/24 Unknown sertraline 50 mg tablet 50 mg PO DAILY 09/07/24 09/07/24 Unknown simvastatin 40 mg tablet 40 mg PO HS 09/07/24 09/07/24 Unknown Active Medications Generic Name Dose Route Start Last Admin Trade Name Freq PRN Reason Stop Dose Admin Sodium Chloride 1,000 mls @ 80 mls/hr 09/07/24 12:44 09/07/24 13:26 Nss IV 09/08/24 01:13 80 mls/hr .[id number] ONE Administration Morphine Sulfate 2 mg 09/07/24 14:22 09/07/24 15:04 Morphine Sulfate 2 Mg/Ml Carp IV 09/21/24 14:21 2 mg Q3H PRN Administration Mod-Sev Pain (Scale 4-10) NPO Date Last Intake of Fluids: 09/06/24 Time Last Intake of Fluids: 20:00 Last Intake of Fluids Comment: diet pepsi Date Last Intake of Solids: 09/06/24 Time Last Intake of Solids: 20:00 Last Intake of Solids Comment: bridget Past Medical History Medical History Lymphedema Depression Past Family History Family History Father Diabetes Past Surgical History Surgical History History of cholecystectomy Social History Smoking Status: Never smoker Hx Alcohol Use: Yes Alcohol type: beer alcohol intake frequency: 3 or more drinks per day Hx Substance Use: No substance use type: does not use Physical Exam Vital Signs Last Vital Signs Temp 37.6 C H 09/07/24 15:22 Pulse 69 09/07/24 15:22 Resp 16 09/07/24 15:22 BP 119/69 09/07/24 15:22 Pulse Ox 92 09/07/24 15:22 O2 Del Method Room Air 09/07/24 15:22 O2 Flow Rate 2 09/07/24 11:24 Testing Laboratory Results 09/07/24 10:30 09/07/24 10:30
[2024-09-07] MEDS ORDERED: fentaNYL citrate PF 100 MCG/2 ML VIAL IV PRN (18:07)
[2024-09-07] MEDS ORDERED: PROMETHAZINE HCL 6.25 MG in SODIUM CHLORIDE 0.9% 50 ML IV PRN (18:07)
[2024-09-07] MEDS ORDERED: ePHEDrine sulfate 50 MG/ML AMP IV PRN (18:07)
[2024-09-07] MEDS ORDERED: ONDANSETRON INJ 2 MG/ML 2 ML VIAL IV PRN ×2 (18:07→20:53)
[2024-09-07] MEDS ORDERED: ATROPINE SULFATE 0.1 MG/ML 10ML SYR IV PRN (18:07)
[2024-09-07] MEDS ORDERED: HYDROmorphone INJ 2 MG/ML SYR/VIAL IV PRN (18:07)
[2024-09-07] MEDS: ceFAZolin 2,000 MG/15 ML IV PUSH IV ONE (18:24)
[2024-09-07] MEDS ORDERED: HYDROmorphone INJ 2 MG/ML SYR/VIAL ONE (18:51)
[2024-09-07] MEDS ORDERED: LABETALOL HCL IV 5 MG/ML 20ML IV ONE (19:13)
--- NOTE | 2024-09-07 20:15 | Operative Report ---
PG Post Operative Report Pre & Post Diagnosis Operation Date: 09/07/24 17:00 Pre-Op Diagnosis: 1. Closed Fracture of metatarsal of left foot-metatarsals 2, 3, 4,, 2. Bimalleolar fracture/dislocation of left ankle Post-Op Diagnosis: 1. Closed Fracture of metatarsal of left foot-metatarsals 2, 3, 4, 2. Bimalleolar fracture-dislocation of left ankle I identified the patient and participated in the time-out.: Yes Procedure Operation Date: 09/07/24 17:00 Actual Procedures p Open Reduction Internal Fixation Left Ankle bimalleolar fracture/dislocation ( Left) - Shawn Geiger MD Surgeon Shawn Geiger MD Lab Analyst Les Stark PA-C Estimated Blood Loss 30 Findings Consistent with Post-Op Diagnosis Specimens None Anesthesia Type General Complications none Disposition Accompanied Patient To Recovery: No Indications Patient is a 74-year-old female who sustained a fall when she was in her driveway going to take care of the garbage. She had acute onset of pain and deformity. She was brought to emergency room where x-rays revealed a markedly displaced comminuted left by mall ankle fracture dislocation. She underwent a closed reduction. She was admitted by the medicine service, medically optimized and indicated for surgical repair. Description of Procedure Operative implants consist of: Medial side implants consists of: 1. Synthes 4.0 long threaded/partially-threaded cannulated cancellous screws x 2 each with a washer. Lateral side implants consist of: 1 Synthes 8 hole one third semitubular locking plate. 2. 3.5 fully threaded cortical screws x 3. 3. 4.0 partially-threaded cancellous screw x 1. 4. 4.0 fully threaded cancellous screw x 1. 5. 3.5 cortical locking screw x 1. The patient was taken the op room, identified, placed on the operating table in the supine position. All contact areas were appropriately padded. IV antibiotics fibra anesthesia team. A general anesthetic was implemented. A left thigh tourniquet was then placed. The left lower extremity splint was then removed. I scrubbed the left ankle foot and the leg with a Hibiclens. The left foot was then prepped with a ChloraPrep and draped in usual sterile fashion. The left leg was elevated and exsanguinated with use of an Esmarch and a turn was placed at 300 mmHg. A medial approach to the ankle was then performed through a slightly curvilinear incision. Sharp dissection scalp through subcutaneous tissue directly down the fracture site. The fracture was extremely unstable. We open the fracture site and debrided of all soft tissue. I then reduced the fracture and held it reduced. I then placed 2 wires across the fracture site. I then placed 2 partially-threaded/long threaded cannulated screws over the wires after verifying placement fluoroscopically. Each screw had a washer with with it. Despite excellent medial fixation. Attention then drawn laterally. A direct lateral approach the fibula was then performed to a longitudinal incision. Sharp dissection was Through subcutaneous tissue down to level of the fibula. The fibula was exposed. I open the fracture up and debrided it. I then hold it reduced with reduction clamp and then placed a single 4.0 partially-threaded cancellous screw across the fracture site in a lag fashion. A 8 hole one third semitubular plate was then contoured to the lateral aspect of the fibula. It was placed in the posterior lateral border. It was fixed with three 3.5 cortical screws proximally, a single cancellous screw distally and then a single level cortical locking screw distally. X-rays brought in. The fracture is anatomically aligned. I stressed the mortises and there was no gapping of the mortise. All hardware is appropriately position. Attention then drawn toward closing. The wound was irrigated coconuts with normal saline. I injected locally with 30 cc of half percent Marcaine with epinephrine. The tourniquet was let down for final tourniquet time 44 minutes. Hemostasis assured with electrocautery. The fascia over the plate laterally was closed with 0 Vicryl suture in a iylbyy-ed-kzhyu fashion for the subcutaneous tissues of both wounds were then closed with 2-0 Vicryl suture in a buried interrupted fashion the skin was closed with 3-0 nylon suture in simple fashion. The leg was then cleaned and dried a sterile dressing was Xeroform, 4 x 4's, sterile cast padding and a well- padded posterior and stirrup splint were applied. The patient was then brought out of general anesthesia and transferred to the recovery room in stable condition. Patient tolerated procedure well and there are no complications. Les Stark, physician carpenter's assistant, was present for the entire procedure. His assistance was required for proper patient positioning, prepping and draping, surgical exposure, retraction, perform the technical details of the operation, placement of the hardware, closure of the incision site, and placement of postoperative sterile bandage and splint. I attest to the content of the Intraoperative Record and any orders documented therein. Any exceptions are noted below.
--- NOTE | 2024-09-07 20:35 | Anesthesiology Progress Note ---
Date of Service September 07, 2024 Anesthesia Post Procedure Vital Signs Vital Signs: Temp Pulse Pulse Resp BP BP Pulse Ox 09/07/24 20:30 37.2 C 75 14 106/63 96 09/07/24 20:20 74 12 114/76 94 09/07/24 20:10 73 14 112/77 95 09/07/24 20:03 36.5 C 75 16 127/75 97 09/07/24 15:22 37.6 C H 69 16 119/69 92 09/07/24 15:10 68 09/07/24 14:53 37.7 C H 71 18 122/69 92 09/07/24 14:22 37.7 C H 71 18 122/69 92 09/07/24 13:17 70 20 110/63 96 09/07/24 12:15 68 20 104/55 L 95 09/07/24 12:06 70 15 95 09/07/24 12:00 72 15 92/58 L 94 09/07/24 11:57 67 15 94 09/07/24 11:45 72 17 93/56 L 94 09/07/24 11:45 67 13 98/60 L 95 09/07/24 11:30 64 18 109/67 95 09/07/24 11:29 72 16 97 09/07/24 11:27 17 95 09/07/24 11:24 16 97 09/07/24 11:22 18 98 09/07/24 11:21 64 19 114/69 99 09/07/24 11:21 52 L 09/07/24 11:20 17 98 09/07/24 11:18 80 16 99 09/07/24 11:17 18 97 09/07/24 11:15 16 98 09/07/24 11:15 62 15 124/78 97 09/07/24 11:14 2 L 62 L 09/07/24 11:12 50 L 15 128/62 98 09/07/24 11:00 73 18 111/66 94 09/07/24 10:54 72 93 09/07/24 10:42 67 93 09/07/24 10:39 67 94 09/07/24 10:35 67 09/07/24 10:30 73 18 131/77 92 09/07/24 09:25 36.6 C 70 20 130/69 96 O2 Del Method O2 Flow Rate 09/07/24 20:30 Nasal Cannula 2 09/07/24 20:20 Nasal Cannula 2 09/07/24 20:10 Oxymask 8 09/07/24 20:03 Oxymask 8 09/07/24 15:22 Room Air 09/07/24 15:10 09/07/24 14:53 Room Air 09/07/24 14:22 Room Air 09/07/24 13:17 Room Air 09/07/24 12:15 Room Air 09/07/24 12:06 Room Air 09/07/24 12:00 Room Air 09/07/24 11:57 Room Air 09/07/24 11:45 Room Air 09/07/24 11:45 Room Air 09/07/24 11:30 Room Air 09/07/24 11:29 Room Air 09/07/24 11:27 Room Air 09/07/24 11:24 Nasal Cannula 2 09/07/24 11:22 Nasal Cannula 2 09/07/24 11:21 Nasal Cannula 5 09/07/24 11:21 09/07/24 11:20 Nasal Cannula 2 09/07/24 11:18 Nasal Cannula 5 09/07/24 11:17 Nasal Cannula 5 09/07/24 11:15 Nasal Cannula 5 09/07/24 11:15 Nasal Cannula 4 09/07/24 11:14 Ambu-Bag 09/07/24 11:12 Nasal Cannula 4 09/07/24 11:00 Room Air 09/07/24 10:54 Room Air 09/07/24 10:42 Room Air 09/07/24 10:39 Room Air 09/07/24 10:35 09/07/24 10:30 Room Air 09/07/24 09:25 Room Air Transfer of Care Handoff Completed per policy Notes Mental Status: alert / awake / arousable Patient Amnestic to Procedure: Yes Nausea / Vomiting: adequately controlled Pain: adequately controlled Airway Patency, RR, SpO2: stable & adequate BP & HR: stable & adequate Hydration State: stable & adequate Anesthetic Complications: no major complications apparent
[2024-09-07] MEDS ORDERED: NALOXONE HCL 0.4 MG/1 ML VIAL/CARP IV PRN (20:53)
[2024-09-07] MEDS ORDERED: traMADol HCL 50 MG TABLET PO PRN (20:53)
[2024-09-07] MEDS ORDERED: METOCLOPRAMIDE HCL INJ 5 MG/ML 2 ML VIAL IV PRN (20:53)
[2024-09-07] MEDS ORDERED: HYDROmorphone INJ 0.5 MG/0.5 ML SYR IV PRN (20:53)
[2024-09-07] MEDS ORDERED: MAGNESIUM HYDROXIDE SUSP 30 ML UDC PO PRN (20:53)
[2024-09-07] MEDS ORDERED: ALUMINUM/MAGNESIUM SUSP 30 ML UDC PO PRN (20:53)
[2024-09-07] MEDS: GABAPENTIN 400 MG CAP PO ONE (20:54)
[2024-09-07] MEDS: BUPIVACAINE/EPINEPHRINE 0.5% MPF 1:200,000 30 ML VIAL ONE (21:01)
[2024-09-07] MEDS: SENNA 8.6 MG TAB PO SCH (21:07)
[2024-09-07] MEDS: HEPARIN SOD 5,000 UNIT/0.5 ML VIAL SQ SCH (21:07)
[2024-09-07] MEDS: DOCUSATE SODIUM 100 MG CAP PO SCH (21:07)
[2024-09-07] MEDS: KETOROLAC TROMETHAMINE 15 MG/ML VIAL IV SCH (21:07)
[2024-09-07] MEDS: SODIUM CHLORIDE 0.9% 1,000 ML IV SCH (21:08)
[2024-09-07] MEDS: SIMVASTATIN 40 MG TAB PO SCH (21:08)
[2024-09-07] MEDS: ASPIRIN 81 MG ECTAB PO SCH (21:21)
[2024-09-07] MEDS: GABAPENTIN 400 MG CAP PO SCH (22:22)
[2024-09-07] MEDS: ACETAMINOPHEN 500 MG TAB PO SCH (22:22)
[2024-09-08] MEDS: ceFAZolin 1000MG 1,000 MG/7.5 ML SYR IV SCH (03:00)
[2024-09-08] MEDS: LEVOTHYROXINE SODIUM 137 MCG TABLET PO SCH (05:24)
[2024-09-08 06:32] LABS: Hematocrit (blood only) 31.7 % (37.0-47.0); Hemoglobin 10.9 g/dl (12.0-16.0); Mean Corpuscular Hemoglobin 34.5 pg (25.0-34.0); Mean Corpuscular Hgb Conc 34.4 g/dL (32.0-36.0); Mean Corpuscular Volume 100.3 fL (80.0-100.0); Mean Platelet Volume 9.2 fL (9.4-12.4); Platelet Count 149 K/uL (130-400); RDW Standard Deviation 44.3 fL (36.4-46.3); Red Blood Count 3.16 M/uL (4.20-5.40); White Blood Count 4.35 K/ul (4.8-10.8)
[2024-09-08 07:21] LABS: BUN Creatinine Ratio 10.7 (10-20); Calcium 7.6 mg/dl (8.6-10.3); Creatinine Clr Calc Pharmacy 59.1 ml/min; Magnesium 1.8 mg/dl (1.7-2.4); Potassium 4.7 mmol/L (3.5-5.1)
[2024-09-08] MEDS: ASCORBIC ACID 500 MG TAB PO SCH (08:53)
[2024-09-08] MEDS: MULTIVITAMIN TAB PO SCH ×2 (08:53→08:54)
[2024-09-08] MEDS: CHOLECALCIFEROL 25 MCG (1000 UNITS) TAB PO SCH (08:53)
[2024-09-08] MEDS: THIAMINE HCL 100 MG TAB PO SCH (08:54)
[2024-09-08] MEDS: FOLIC ACID 400 MCG TAB PO SCH (08:54)
[2024-09-08] MEDS: SERTRALINE HCL 50 MG TABLET PO SCH (08:54)
--- NOTE | 2024-09-08 09:24 | Orthopedic Progress Note ---
Date of Service September 08, 2024 Assessment & Plan (1) Trimalleolar fracture of left ankle: Plan: 74-year-old female postop day 1 from ORIF of a left trimalar ankle fracture dislocation. She also has several metatarsal fractures which are nondisplaced which do not require surgical intervention. She is doing well. Pains controlled. Plan: We are going to proceed with beginning of physical therapy and Occupational Therapy. She is strictly nonweightbearing on his left leg for the first 2 weeks to get wound healing. She will leave the dressing and splint clean dry and intact. I will need to see her back 2 to 3 weeks out from her surgery date. As far as DVT prophylaxis we will just continue her on her Plavix. She is orthopedically okay for discharge anytime. She may need some assistance or half-way facility placement. Any orthopedic questions can be directly [phone]. (2) Fracture of metatarsal of left foot, closed: (3) Closed dislocation of left ankle: Admission and Anticipated Discharge Date Admission Date: September 07, 2024 Subjective 74-year-old female now postop day 1 from a left trimalar ankle fracture disl ocation ORIF. She is doing pretty well this morning. Really denies any significant pain. I had to wake her this morning. Denies any chest pain or shortness of breath. No new complaints. Physical Exam Physical Exam: Physical nation was a pleasant early female. I did wake her this morning. Examination of the left ankle reveals the dressing to clean dry and in place. She can flex extend her toes appropriately. She has got brisk refill. She is neurologically intact. Results & Data Vital Signs (Past 12 Hours) Vital Signs Temp Pulse Pulse Resp BP Pulse Ox O2 Del Method 09/08/24 07:56 36.4 C L 58 L 18 114/71 98 Nasal Cannula 09/08/24 07:08 53 L 09/08/24 03:06 36.5 C 54 L 14 107/67 97 Nasal Cannula 09/07/24 23:23 36.6 C 59 L 16 101/66 94 Nasal Cannula 09/07/24 22:23 36.7 C 65 14 99/62 L 96 Room Air 09/07/24 21:39 69 09/07/24 21:29 Nasal Cannula 09/07/24 21:23 37 C 70 14 110/76 96 Nasal Cannula O2 Flow Rate 09/08/24 07:56 2 09/08/24 07:08 09/08/24 03:06 2 09/07/24 23:23 2 09/07/24 22:23 09/07/24 21:39 09/07/24 21:29 2 09/07/24 21:23 2
[2024-09-08] MEDS: GABAPENTIN 400 MG CAP PO SCH (13:01)
--- NOTE | 2024-09-08 13:25 | Electrocardiogram Report ---
Test Reason : Blood Pressure : */* mmHG Vent. Rate : 67 BPM Atrial Rate : 67 BPM P-R Int : 172 ms QRS Dur : 128 ms QT Int : 484 ms P-R-T Axes : 31 -26 -4 degrees QTcB Int : 511 ms Normal sinus rhythm Right bundle branch block Possible Lateral infarct (cited on or before 09-Nov-2019) Abnormal ECG When compared with ECG of 09-Nov-2019 00:12, Questionable change in initial forces of Lateral leads Inverted T waves have replaced nonspecific T wave abnormality in Inferior leads QT has shortened Confirmed by Sanjana Miller ([place]) on 09/08/2024 1:25:51 PM Referred By: REFERRED SELF Confirmed By: Sanjana Miller
--- NOTE | 2024-09-08 13:42 | Hospitalist Progress Note ---
Date of Service September 08, 2024 Assessment & Plan (1) Heart block AV second degree: (2) Closed dislocation of left ankle: (3) Trimalleolar fracture of left ankle: (4) Hypokalemia: Plan Mechanical Fall Left Trimalleolar Fracture Hx of alcohol abuse - Admit to med surg with tele - Imaging reviewed - Ortho evaled, status post left trimalar ankle fracture dislocation ORIF 09/07. f/u ortho in 2 wks. - EKG being repeated with concerns in the ER for new 2nd degree AV block, lymes serology is pending - c/w pain mx, bowel regimen. - vit d level 18.5, c/w vit d supplement, repeat level in 3 months. Hx of alcohol abuse - Drinks 3 x 16 oz cans of beer daily - AWSS protocol, lorazepam prn per protocol - Cessation encouraged - EtOh 59.4 at presentation. HLD- Simvastatin 40 mg HS LE edema- Taking lasix 40 mg daily for such, pt denies any previous cardiac hx or lymphedema. She did have 1 + pitting in the right leg at presentation, the left is in imobilizer. Will hold lasix for now. Monitor closely for fluid overload. Hypothyroidism: TSH wnl. c/w home levothyroxine. Mood disorder- Sertraline 50 mg daily DVT ppx: teds, scds, aspirin bid per ortho Sx. CODE: FULL Dispo: PT/OT, likely rehab need. Admission and Anticipated Discharge Date Admission Date: September 07, 2024 Subjective Patient was seen and examined at bedside. Patient was lying in bed, on room air, NAD, resting comfortably. Patient reports operative site pain under control. She is status post left trimalar ankle fracture dislocation ORIF. She reports eating okay, has normal bowel after the surgery, moving gas, denies abdominal pain. Patient denies any shortness of breath or cough or sore throat or chest pain. Physical Exam Physical Exam: General: awake, alert, no apparent distress Head: Normocephalic, atraumatic ENT: PERRL, EOMI, no pharyngeal exudate, mucous membranes moist Chest: Clear to auscultation, on room air, no adventitious breath sounds Cardiac: Regular rate and rhythm, no murmur, no JVD, normal peripheral pulses, good capillary refill Abdominal: NABS x 4 quadrants, soft, nondistended, nontender to palpation, no rebound or guarding Extremities: RLE w/ dressing c/d/i, distal NV status wnl. LLE no edema. Psych: Normal mood and affect Neuro: AAO x 3, no gross motor deficits, speech is clear, no peripheral sensory deficits Results & Data Results & Data Vital Signs (Past 12 Hours) Vital Signs Temp Pulse Pulse Resp BP Pulse Ox O2 Del Method 09/08/24 07:56 36.4 C L 58 L 18 114/71 98 Nasal Cannula 09/08/24 07:08 53 L 09/08/24 03:06 36.5 C 54 L 14 107/67 97 Nasal Cannula O2 Flow Rate 09/08/24 07:56 2 09/08/24 07:08 09/08/24 03:06 2
[2024-09-09 07:34] LABS: Hematocrit (blood only) 30.2 % (37.0-47.0); Mean Corpuscular Hemoglobin 33.7 pg (25.0-34.0); Mean Corpuscular Hgb Conc 33.1 g/dL (32.0-36.0); Mean Corpuscular Volume 101.7 fL (80.0-100.0); Platelet Count 151 K/uL (130-400); RDW Coefficient of Variation 12.5 % (11.5-14.5); RDW Standard Deviation 46.5 fL (36.4-46.3); Red Blood Count 2.97 M/uL (4.20-5.40); White Blood Count 4.97 K/ul (4.8-10.8)
[2024-09-09 07:52] LABS: BUN Creatinine Ratio 12.8 (10-20); Calcium 8.2 mg/dl (8.6-10.3); Creatinine Clr Calc Pharmacy 63.6 ml/min; Magnesium 1.9 mg/dl (1.7-2.4); Phosphorus 2.2 mg/dl (2.5-4.9); Potassium 3.9 mmol/L (3.5-5.1)
[2024-09-09 07:59] VITALS: BP 111/68; RESP 17; TEMP 97.9; O2SAT 97
[2024-09-09] MEDS ORDERED: POTASSIUM PHOS 3 MMOL/1 ML INFUSION IV STA (08:02)
--- NOTE | 2024-09-09 08:07 | Fluoroscopy Report ---
FL ankle LT min 3V RTN CLINICAL HISTORY: LT ANKLE ORIF COMPARISON STUDY: 09/07/2024 FLUOROSCOPY TIME: 12 seconds FLUOROSCOPY IMAGES: 5 EXPOSURE DOSE: 0.26 mGy FINDINGS: Fluoroscopy was provided for internal fixation of the left ankle. IMPRESSION: Intraoperative fluoroscopy. ACT 112: Negative or not required by law. Electronically signed by: Sebas Dewitt M.D. 09/09/2024 8:06 AM
--- NOTE | 2024-09-09 08:30 | Orthopedic Progress Note ---
Date of Service September 09, 2024 Assessment & Plan (1) Trimalleolar fracture of left ankle: Postop day 2 from a trimalleolar fracture ORIF: - Nonweightbearing left lower extremity - Dressing and splint should remain in place. - She will continue her Plavix for DVT prophylaxis -orthopedically stable for discharge - Follow-up with Dr. Geiger in 2 weeks. Subjective Operation Date: 09/07/24 17:00 Actual Procedures p Open Reduction Internal Fixation Left Ankle bimalleolar fracture/dislocation (Left) - Shawn Geiger MD Patient is postop day 2 from a left ankle ORIF by Dr. Geiger. She states she is doing well. She is resting comfortably in her hospital bed. States her pain is very minimal at this point. Case management did see her on 09/08/2024. She plans to return home and feels she has adequate family support. Planning for discharge today per case management note. Review of Systems All systems reviewed & are unremarkable except as noted in HPI & below. Physical Exam General: Alert and oriented. No acute distress. Left ankle: Patient is resting comfortably in hospital bed with her left foot and ankle in a splint. She has full range of motion, sensation in the toes. Splint is dry and intact. Results & Data Results & Data Laboratory Results . Diagnostic Findings . PG Care Time/CCT Total # of Minutes Spent Total Time Spent with Patient: Total time spent is greater than 50% in coordination of care (as documented) at patient's floor/unit and/or counseling patient: Coding Level of Care Code 33688 Post Operative Follow-Up Diagnoses Trimalleolar fracture of left ankle S82.852A
[2024-09-09] MEDS: POTASSIUM PHOSPHATE 9 MMOL in SODIUM CHLORIDE 0.9% 250 ML IV ONE (10:14)
--- NOTE | 2024-09-09 11:31 | Discharge Summary ---
Date of Service September 09, 2024 Admission HPI Per Admitting Provider This is a 74-year-old female with PMHx of hypothyroidism, mood disorder, history of alcohol abuse who presents to the hospital after sustaining an acute fall injuring the left ankle. She was attempting to take the trash out and misstepped on a step and fell down with twisting of her ankle. She denies injury to her head or other part of the body. She typically walks without assistive devices. Here the patient is found to have a trimalleolar fracture as well as three metatarsal fractures in the left foot. The trimalleolar fracture was mechanically reduced in the ER to the best of ability. Ortho has been consulted this morning. She has been n.p.o. since yesterday at dinner time. Ortho is considering taking the patient to the OR today if she is medically cleared. Patient was found to have a possible second-degree AV block on her EKG in the ER which appears to be new. She has an old right bundle branch block. Repeating an EKG now to further evaluate. Lyme disease screening is pending. CXR is negative. Daughter is present at bedside and supports the history. Pt did not take any of her home medications this morning, meds are confirmed in EMR. Pt Denies any tobacco use or drug use. Pt admits to alcohol use with beer (juni light) 16 oz 3per day, last drink was yesterday. She denies withdrawal symptoms or ever having seizures from withdraw. Admission Exam Per Admitting Provider General: awake, alert, no apparent distress Head: Normocephalic, atraumatic ENT: PERRL, EOMI, no pharyngeal exudate, mucous membranes moist Chest: Clear to auscultation, on room air, no adventitious breath sounds Cardiac: Regular rate and rhythm, no murmur, no JVD, normal peripheral pulses, good capillary refill Abdominal: NABS x 4 quadrants, soft, nondistended, nontender to palpation, no rebound or guarding Extremities: RLE 1 + edema, Left in immobilizer, no peripheral erythema, calfs nontender to palpation Psych: Normal mood and affect Neuro: AAO x 3, no gross motor deficits, speech is clear, no peripheral sensory deficits Principal Diagnosis Left Ankle Fracture/dislocation Discharge Exam General: awake, alert, no apparent distress Head: Normocephalic, atraumatic ENT: PERRL, EOMI, no pharyngeal exudate, mucous membranes moist Chest: Clear to auscultation, on room air, no adventitious breath sounds Cardiac: Regular rate and rhythm, no murmur, no JVD, normal peripheral pulses, good capillary refill Abdominal: NABS x 4 quadrants, soft, nondistended, nontender to palpation, no rebound or guarding Extremities: RLE w/ dressing c/d/i, distal NV status wnl. LLE no edema. Psych: Normal mood and affect Neuro: AAO x 3, no gross motor deficits, speech is clear, no peripheral sensory deficits Discharge Data Allergies Allergy/AdvReac Type Severity Reaction Status Date / Time No Known Allergies Allergy Unverified 09/07/24 11:35 Consultations 09/07/24 12:19 ED Decision to Admit Stat 09/07/24 12:40 Consult Orthopedic Surgery Routine Procedures Performed Operation Date: 09/07/24 17:00 Actual Procedures p Open Reduction Internal Fixation Left Ankle(Left) - Shawn Geiger MD Ordered Studies 09/07/24 FL ankle LT min 3V RTN Routine Hospital Course (1) Heart block AV second degree: (2) Closed dislocation of left ankle: (3) Trimalleolar fracture of left ankle: (4) Hypokalemia: Plan 74 yo F was managed for the following: Mechanical Fall Left Trimalleolar Fracture Hx of alcohol abuse - Admitted to med surg with tele - Imaging reviewed - Ortho evaled, status post left trimalar ankle fracture dislocation ORIF 09/07. f/u ortho in 2 wks. - lymes serology neg. - c/w pain mx, bowel regimen. - vit d level 18.5, c/w vit d supplement, repeat level in 3 months. - PT evaled, pt will need walker on dc. Hx of alcohol abuse - Drinks 3 x 16 oz cans of beer daily. EtOh 59.4 at presentation. - AWSS protocol, lorazepam prn per protocol. No ativan need noted. - Cessation encouraged , AWSS score has been low, HR wnl. Will dc on gabapentin taper. HLD- Simvastatin 40 mg HS LE edema- Taking lasix 40 mg daily for such, pt denies any previous cardiac hx or lymphedema. She did have 1 + pitting in the right leg at presentation, the left is in immobilizer. c/w home lasix. Hypothyroidism: TSH wnl. c/w home levothyroxine. Mood disorder- Sertraline 50 mg daily DVT ppx: teds, scds, aspirin bid per ortho Sx. CODE: FULL Patient's daughter was given a phone call and updated on plan of care and given instructions for discharge. Patient is being discharged home with home health and family support with following instructions at the point of discharge: Follow-up with your primary care physician within a week time and likely you will need labs CBC/CMP/magnesium/phosphorus. Your vitamin D levels were low, you are being started on vitamin D supplement. You will need repeat vitamin D level in 3 months time, coordinate with your PCP office to set up the test. You will be discharged on baby aspirin twice a day for next 33 days for DVT prophylaxis. You will be discharged on pain medication for next few days, if worsening pain/pain not getting controlled, follow-up with orthopedic office for further evaluation/pain management prescription. Recommend that you consider quitting alcohol. You will be discharged on gabapentin taper to help with withdrawal symptom management. Follow-up with orthopedics in 1 to 2 weeks time upon discharge. Continue w/ Home Health Physical Therapy. Take your medications as prescribed. Please make sure that you are able to get your medications today by calling your pharmacy before you leave the hospital so that your treatment continuity is not broken. Home Health Attestation I certify that this patient is under my care and that I, or a physicians assistant professor of theater working with me, had a face to-face encounter that meets the home health [id number] encounter requirements with this patient. The encounter with the patient was in whole, or in part, for the following medical condition, which is the primary reason for home health care (list medical condition): I certify that, based on my findings, the following services are medically necessary home health services: My clinical findings support the need for the above services because: Further, I certify that my clinical findings support that this patient is homebound (i.e. absences from home require considerable and taxing effort and are for medical reasons or catholic services or infrequently or of short duration when for other reasons) because: Certification for Home Health Services: Based on the above findings, I certify that this patient is confined to the home and needs intermittent group home care, physical therapy and/or speech therapy or continues to need occupational therapy. The patient is under my care, and I have initiated the establishment of the plan of care. This patient will be followed by a physician who will periodically review the plan of care. Total Time Total Time Spent Total Time Spent (In Minutes): 35 Discharge Plan Discharge Items Patient Disposition: Home - Home Health Services Reason For Visit: ANKLE FRACTURE Discharge Diagnosis: Surgical Treatment of Left Ankle Fracture/dislocation Condition on Discharge: Good Activity: Per Instructions section Weightbearing: Left non-weightbearing Weightbearing Comment: Nonweightbearing on left leg. Keep all pressure off heel at all times. Non-emergency contact: Primary Care Provider Call non-emergency contact if: you have any medication questions Follow-up/Referrals: Shawn Geiger MD [Physician] - (Orthopedic follow-up 2-3 weeks from surgery date.) Jenna Adams PA-C [Primary Care Provider] - Diet: Regular Addtl Attending Provider Instructions: Keep bandage and splint clean, dry, and in place until orthopedic appointment. ELevate left leg as much as possible. Keep all pressure off heel. Addtl Nutritional Health Coach Provider Instructions: Follow-up with your primary care physician within a week time and likely you will need labs CBC/CMP/magnesium/phosphorus. Your vitamin D levels were low, you are being started on vitamin D supplement. You will need repeat vitamin D level in 3 months time, coordinate with your PCP office to set up the test. You will be discharged on baby aspirin twice a day for next 33 days for DVT prophylaxis. You will be discharged on pain medication for next few days, if worsening pain/pain not getting controlled, follow-up with orthopedic office for further evaluation/pain management prescription. Recommend that you consider quitting alcohol. You will be discharged on gabapentin taper to help with withdrawal symptom management. Follow-up with orthopedics in 1 to 2 weeks time upon discharge. Continue w/ Home Health Physical Therapy. Take your medications as prescribed. Please make sure that you are able to get your medications today by calling your pharmacy before you leave the hospital so that your treatment continuity is not broken. Pending Studies at Discharge: No Stand-Alone Forms: [facility] [employer], Smoking Cessation Medications and DC Order Prescriptions: New acetaminophen [Tylenol Extra Strength] 500 mg Tablet 1,000 mg PO Q8 5 Days Qty: 30 0RF aspirin 81 mg Tablet,Delayed Release (Dr/Ec) 81 mg PO BID 33 Days Qty: 66 0RF gabapentin 400 mg Capsule 400 mg PO Q12H 2 Days Qty: 3 0RF oxycodone-acetaminophen [Percocet] 5-325 mg Tablet 1 tab PO Q8H PRN (Reason: pain) 5 Days Qty: 15 0RF docusate sodium 100 mg Capsule 100 mg PO BID PRN (Reason: constipation) Qty: 20 0RF sennosides [Senokot] 8.6 mg Tablet 17.2 mg PO HS 5 Days Qty: 10 0RF cholecalciferol (vitamin D3) 25 mcg (1,000 unit) Capsule 25 mcg PO QAM Qty: 30 0RF folic acid 400 mcg Tablet 400 mcg PO QAM Qty: 30 0RF multivitamin with folic acid [Daily-Wendy (with folic acid)] 400 mcg Tablet 1 tab PO QAM Qty: 30 0RF thiamine HCl (vitamin B1) 100 mg Tablet 100 mg PO QAM Qty: 30 0RF Continued furosemide 40 mg tablet 40 mg PO QAM Rx Instructions: Filled 05/15/24 x90 day supply. Per daughter pt should still be taking. levothyroxine 137 mcg Tablet 137 mcg PO DAILY Rx Instructions: Filled 05/20/24 x90 day supply. Per daughter pt should still be taking. simvastatin 40 mg tablet 40 mg PO HS sertraline 50 mg tablet 50 mg PO DAILY Rx Instructions: Last filled 04/10/25 x90 day supply. Per daughter pt should still be taking. Discharge Orders: Discharge Order (Routine); Ordered 09/09/24 Ordered By: Tony Mesa Admission Data Admit Date/Time: 09/07/24 12:42 Attending Provider: Tony Mesa Admit Provider: Efra Bacon Primary Care Provider: Jenna Adams Other Providers: Efra Bacon; Shawn Geiger
[2024-09-09 13:14] VITALS: PULSE 66
[2024-09-09] MEDS ORDERED: GABAPENTIN 400 MG CAP PO SCH (17:00)
[2024-09-11] MEDS ORDERED: GABAPENTIN 400 MG CAP PO SCH (05:00)
== END 2024-09-09 14:27 | disposition home health service (06) | DRG 493 ==
LOC: ED 09:19 → SUATTDRO 12:42 → 2N 12:42
DX: F10.10 Alcohol abuse, uncomplicated; S92.322A Displaced fracture of second metatarsal bone, left foot, initial encounter for closed fracture; E78.5 Hyperlipidemia, unspecified; E87.6 Hypokalemia; I44.1 Atrioventricular block, second degree; Z79.899 Other long term (current) drug therapy; S92.332A Displaced fracture of third metatarsal bone, left foot, initial encounter for closed fracture; D62 Acute posthemorrhagic anemia; S82.842A Displaced bimalleolar fracture of left lower leg, initial encounter for closed fracture; Z79.890 Hormone replacement therapy; E03.9 Hypothyroidism, unspecified; Y90.2 Blood alcohol level of 40-59 mg/100 ml; W01.0XXA Fall on same level from slipping, tripping and stumbling without subsequent striking against object, initial encounter; F39 Unspecified mood [affective] disorder; S92.342A Displaced fracture of fourth metatarsal bone, left foot, initial encounter for closed fracture